=== PATIENT | male | born 1950 | race American Indian/Alaskan Native ===

== ENCOUNTER 2018-06-21 12:05 | Emergency (ER) | payer MEDICAID, OTHER ==
[2018-06-21 12:40] VITALS: BP 144/83
[2018-06-21] MEDS ORDERED: NORCO 5/325 PO ONE (13:42)
[2018-06-21] MEDS ORDERED: NORCO 5/325 ONE (13:45)
--- NOTE | 2018-06-21 14:51 | XRay Report ---
RIGHT ELBOW, 2 VIEWS History: Pain. Findings: 2 nonstandard images of the right elbow are presented. There is no obvious fracture or dislocation although the radial head is poorly imaged. Impression: Limited exam. No acute abnormality is identified. Consider repeat exam if needed.
--- NOTE | 2018-06-21 14:52 | XRay Report ---
RIGHT SHOULDER, 3 VIEWS: HISTORY: right shoulder pain. A comminuted fracture of the right humeral head/neck is identified. The scapula and clavicle are grossly intact. Large joint effusion is suspected at the right shoulder. The bony structures are demineralized. IMPRESSION: Comminuted fracture of the right humeral head.
--- NOTE | 2018-06-21 15:33 | Emergency Department Report ---
ED Upper Extremity Inj HPI - General Chief Complaint: Shoulder Injury Stated Complaint: RIGHT SHOULD INJURY Time Seen by Provider: 06/21/18 13:07 Source: patient Mode of arrival: Ambulatory Limitations: No Limitations - History of Present Illness Initial Comments: Patient presents to emergency department with the chief complaint of right arm pain that has been present since his fall on June 13. Patient states that he was given up to go to the bathroom when he fell onto his outstretched arm. Patient states he was seen at his physician's x-ray was done and he was not told of the results. The patient did receive a CD of the x-ray and was told to go to the emergency department. Patient denies him his head on the day following or loss of consciousness. Patient denies chest pain, shortness breath, headache. MD Complaint: Injury to:: right -: Sudden Other Extremity Injury: Arm: Right, Shoulder: Right Other Injuries: none Place: home Severity scale (0 -10): 4 Improves With: rest Worsens With: movement of extremity Context: fall Associated Symptoms: denies other symptoms - Related Data Previous Rx's Medication Instructions Recorded Last Taken Type HYDROcodone/APAP 5-325 [[place] 1 each PO Q6HR PRN #12 tablet 06/21/18 Unknown Rx 5/325] Allergies Allergy/AdvReac Type Severity Reaction Status Date / Time No Known Allergies Allergy Verified 06/21/18 12:40 ED Review of Systems ROS: Stated complaint: RIGHT SHOULD INJURY Other details as noted in HPI Comment: All other systems reviewed and negative Constitutional: denies: chills, fever Eyes: denies: eye pain, eye discharge, vision change ENT: denies: ear pain, throat pain Respiratory: denies: cough, shortness of breath, wheezing Cardiovascular: denies: chest pain, palpitations Endocrine: no symptoms reported Gastrointestinal: denies: abdominal pain, nausea, diarrhea Genitourinary: denies: urgency, dysuria Musculoskeletal: denies: back pain, joint swelling, arthralgia Skin: denies: rash, lesions Neurological: denies: headache, weakness, paresthesias Psychiatric: denies: anxiety, depression Hematological/Lymphatic: denies: easy bleeding, easy bruising ED Past Medical Hx - Past Medical History Previous Medical History?: Yes Hx Hypertension: Yes Hx CVA: Yes Hx Diabetes: Yes Additional medical history: high cholesterol - Surgical History Past Surgical History?: No - Social History Smoking Status: Current Every Day Smoker Substance Use Type: None - Medications Home Medications: Home Medications Medication Instructions Recorded Confirmed Last Taken Type HYDROcodone/APAP 5-325 [[place] 1 each PO Q6HR PRN #12 tablet 06/21/18 Unknown Rx 5/325] ED Physical Exam - General Limitations: No Limitations General appearance: alert, in no apparent distress - Head Head exam: Present: atraumatic, normocephalic - Eye Eye exam: Present: normal appearance - ENT ENT exam: Present: mucous membranes moist - Neck Neck exam: Present: normal inspection - Respiratory Respiratory exam: Present: normal lung sounds bilaterally. Absent: respiratory distress, wheezes, rales, rhonchi - Cardiovascular Cardiovascular Exam: Present: regular rate, normal rhythm. Absent: systolic murmur, diastolic murmur, rubs, gallop - GI/Abdominal GI/Abdominal exam: Present: soft, normal bowel sounds. Absent: distended, tenderness - Rectal Rectal exam: Present: deferred - Extremities Exam Extremities exam: Present: other (Gen. this a palpation of the proximal aspect of the humerus right side; the patient's right upper extremity is in a sling and has good sensation throughout all nerves innervating the arm and the patient has good cap refill) - Back Exam Back exam: Present: normal inspection - Neurological Exam Neurological exam: Present: alert, oriented X3 - Psychiatric Psychiatric exam: Present: normal affect, normal mood - Skin Skin exam: Present: warm, dry, intact, normal color. Absent: rash ED Course Vital Signs 06/21/18 06/21/18 06/21/18 12:35 13:14 14:33 Temperature 98 F Pulse Rate 99 H Respiratory 18 17 18 Rate Blood Pressure 144/83 O2 Sat by Pulse 96 Oximetry ED Medical Decision Making - Radiology Data Radiology results: report reviewed [facility] [address] [place] [address] XRay Report Signed Patient: MANSOOR FERRER JR MR#: [id number] : 1950 Acct:[id number] Age/Sex: 68 / M ADM Date: 06/21/18 Loc: ED Attending Dr: Ordering Physician: LUKE VALDERRAMA MD Date of Service: 06/21/18 Procedure(s): XR shoulder 2+V RT Accession Number(s): [id number] cc: LUKE VALDERRAMA MD Fluoro Time In Minutes: RIGHT SHOULDER, 3 VIEWS: HISTORY: right shoulder pain. A comminuted fracture of the right humeral head/neck is identified. The scapula and clavicle are grossly intact. Large joint effusion is suspected at the right shoulder. The bony structures are demineralized. IMPRESSION: Comminuted fracture of the right humeral head. Transcribed By: TTR Dictated By: ELBERT GARCIA JR, MD Electronically Authenticated By: ELBERT GARCIA JR, MD Signed Date/Time: 06/21/181448 DD/ 47 TD/TT: 06/21/181448 - Medical Decision Making I was able to open the patient's ED on our PACS system and at that time it was noticed that the patient had a hemorrhoid head fracture and there was concern for dislocation and thus is for was ordered X-ray was completed to evaluate for fracture dislocation Results discussed with patient Patient instructed to continue to wear his sling Critical care attestation.: If time is entered above; I have spent that time in minutes in the direct care of this critically ill patient, excluding procedure time. ED Disposition Clinical Impression: Humeral head fracture Disposition: - TO HOME OR SELFCARE Is pt being admited?: No Does the pt Need Aspirin: No Condition: Stable Instructions: Arm Fracture in Adults (ED) Additional Instructions: return if worse Prescriptions: HYDROcodone/APAP 5-325 [[place] 5/325] 1 each PO Q6HR PRN #12 tablet PRN Reason: Pain Referrals: PRIMARY MD MAKAYLA [Primary Care Provider] - 3-5 Days JACKLYN WARD MD [Staff Physician] - 3-5 Days Time of Disposition: 15:33
== END 2018-06-21 16:29 | disposition home or self-care (01) ==
LOC: ED 12:05
DX: S42.351A Displaced comminuted fracture of shaft of humerus, right arm, initial encounter for closed fracture (principal); I10 Essential (primary) hypertension; E11.9 Type 2 diabetes mellitus without complications; F17.200 Nicotine dependence, unspecified, uncomplicated; E78.00 Pure hypercholesterolemia, unspecified; Z86.73 Personal history of transient ischemic attack (TIA), and cerebral infarction without residual deficits; W19.XXXA Unspecified fall, initial encounter; Y93.89 Activity, other specified; Y92.002 Bathroom of unspecified non-institutional (private) residence as the place of occurrence of the external cause; Y99.8 Other external cause status

== ENCOUNTER 2018-09-01 21:35 | Emergency (ER) | payer MEDICAID, OTHER ==
--- NOTE | 2018-09-01 21:55 | Emergency Department Report ---
Chief Complaint: Dyspnea/Respdistress Stated Complaint: DIFFICULTY IN BREATHING Time Seen by Provider: 09/01/18 21:50 - HPI History of Present Illness: This is a 68 y.o. male that presents with SOB for a while that has progressed over the last week. PMH DM, CHF, and AR. - ROS Review of Systems: SOB - Exam Vital Signs: Vital Signs 09/01/18 21:50 Temperature 97.8 F Pulse Rate 101 H Respiratory 18 Rate Blood Pressure 142/88 [Left] O2 Sat by Pulse 99 Oximetry MSE screening note: Focused history and physical exam performed. Due to findings the following was ordered: Labs and CXR. ED Disposition for MSE Condition: Stable
[2018-09-01 22:17] LABS: Basophils % (Auto) 0.5 % (0.0-1.8); Eosinophils # (Auto) 0.1 K/mm3 (0.0-0.4); Eosinophils % (Auto) 1.1 % (0.0-4.3); Hematocrit 37.6 % (35.5-45.6); Hemoglobin 12.2 gm/dl (11.8-15.2); Lymphocytes % (Auto) 23.8 % (13.4-35.0); Mean Corpuscular HGB Conc 32 % (32-34); Mean Corpuscular Volume 87 fl (84-94); Monocytes # (Auto) 0.7 K/mm3 (0.0-0.8); Monocytes % (Auto) 7.8 % (0.0-7.3); Platelet Count 530 K/mm3 (140-440); Red Blood Count 4.34 M/mm3 (3.65-5.03); Red Cell Distribution Width 17.2 % (13.2-15.2)
[2018-09-01 22:31] LABS: Alanine Aminotransferase 25 units/L (7-56); Albumin 3.9 g/dL (3.9-5); BUN/Creatinine Ratio 19; Blood Urea Nitrogen 17 mg/dL (9-20); Calcium 9.2 mg/dL (8.4-10.2); Hemolysis Index 7
[2018-09-01] MEDS ORDERED: PROVENTIL IH ONE (22:53)
[2018-09-01] MEDS ORDERED: DECADRON IV ONE (22:53)
[2018-09-01] MEDS ORDERED: ATROVENT IH ONE (22:53)
--- NOTE | 2018-09-01 22:54 | Emergency Department Report ---
ED General Adult HPI - General Chief complaint: Dyspnea/Respdistress Stated complaint: DIFFICULTY IN BREATHING Time Seen by Provider: 09/01/18 21:50 Source: patient Mode of arrival: Ambulatory Limitations: No Limitations - History of Present Illness Initial comments: Patient is a 68-year-old male past medical history of this of heart failure and COPD who percents with shortness of breath it's been going on for 2 weeks and he's also been having a nonproductive cough. Patient denies having any chest pain but he states that his breathing is worse with exertion nothing makes it better. Patient had a [id number] history of smoking. Severity scale (0 -10): 0 - Related Data Home Medications Medication Instructions Recorded Confirmed Last Taken Aspirin [Aspir-Low] 81 mg PO QAM 09/01/18 09/01/18 Unknown ISOSORBIDE MONOnitrate [Imdur ER] 30 mg PO DAILY 09/01/18 09/01/18 Unknown Lisinopril [Zestril TAB] 10 mg PO QDAY 09/01/18 09/01/18 Unknown Metoprolol [Lopressor] 25 mg PO BID 09/01/18 09/01/18 Unknown metFORMIN [Glucophage] 500 mg PO BID 09/01/18 09/01/18 Unknown Previous Rx's Medication Instructions Recorded Last Taken Type HYDROcodone/APAP 5-325 [[place] 1 each PO Q6HR PRN #12 tablet 06/21/18 Unknown Rx 5/325] Furosemide [Lasix TAB] 40 mg PO BID #60 tablet 09/02/18 Unknown Rx Allergies Allergy/AdvReac Type Severity Reaction Status Date / Time No Known Allergies Allergy Verified 06/21/18 12:40 ED Review of Systems ROS: Stated complaint: DIFFICULTY IN BREATHING Other details as noted in HPI Constitutional: denies: chills, fever Eyes: denies: eye pain, eye discharge, vision change ENT: denies: ear pain, throat pain Respiratory: denies: cough, shortness of breath, wheezing Cardiovascular: denies: chest pain, palpitations Endocrine: no symptoms reported Gastrointestinal: denies: abdominal pain, nausea, diarrhea Genitourinary: denies: urgency, dysuria Musculoskeletal: denies: back pain, joint swelling, arthralgia Skin: denies: rash, lesions Neurological: denies: headache, weakness, paresthesias Psychiatric: denies: anxiety, depression Hematological/Lymphatic: denies: easy bleeding, easy bruising ED Past Medical Hx - Past Medical History Hx Hypertension: Yes Hx CVA: Yes Hx Congestive Heart Failure: Yes Hx Diabetes: Yes Additional medical history: high cholesterol - Social History Smoking Status: Former Smoker Substance Use Type: None - Medications Home Medications: Home Medications Medication Instructions Recorded Confirmed Last Taken Type HYDROcodone/APAP 5-325 [[place] 1 each PO Q6HR PRN #12 tablet 06/21/18 09/01/18 Unknown Rx 5/325] Aspirin [Aspir-Low] 81 mg PO QAM 09/01/18 09/01/18 Unknown History ISOSORBIDE MONOnitrate [Imdur ER] 30 mg PO DAILY 09/01/18 09/01/18 Unknown History Lisinopril [Zestril TAB] 10 mg PO QDAY 09/01/18 09/01/18 Unknown History Metoprolol [Lopressor] 25 mg PO BID 09/01/18 09/01/18 Unknown History metFORMIN [Glucophage] 500 mg PO BID 09/01/18 09/01/18 Unknown History Furosemide [Lasix TAB] 40 mg PO BID #60 tablet 09/02/18 Unknown Rx ED Physical Exam - General Limitations: No Limitations General appearance: alert, in no apparent distress - Head Head exam: Present: atraumatic, normocephalic - Eye Eye exam: Present: normal appearance - ENT ENT exam: Present: mucous membranes moist - Neck Neck exam: Present: normal inspection - Respiratory Respiratory exam: Present: normal lung sounds bilaterally. Absent: respiratory distress - Cardiovascular Cardiovascular Exam: Present: regular rate, normal rhythm. Absent: systolic murmur, diastolic murmur, rubs, gallop - GI/Abdominal GI/Abdominal exam: Present: soft, normal bowel sounds - Rectal Rectal exam: Present: deferred - Extremities Exam Extremities exam: Present: normal inspection - Back Exam Back exam: Present: normal inspection - Neurological Exam Neurological exam: Present: alert, oriented X3 - Psychiatric Psychiatric exam: Present: normal affect, normal mood - Skin Skin exam: Present: warm, dry, intact, normal color. Absent: rash ED Course Vital Signs 09/01/18 09/01/18 09/01/18 21:50 22:25 23:02 Temperature 97.8 F 97.8 F Pulse Rate 101 H 95 H Pulse Rate [ 85 Anterior Bilateral Throughout] Respiratory 18 22 Rate Respiratory 16 Rate [Anterior Bilateral Throughout] Blood Pressure Blood Pressure 142/88 130/97 [Left] O2 Sat by Pulse 99 93 Oximetry 09/02/18 09/02/18 09/02/18 00:00 00:02 01:31 Temperature Pulse Rate 99 H Pulse Rate [ 89 Anterior Bilateral Throughout] Respiratory 22 Rate Respiratory 16 Rate [Anterior Bilateral Throughout] Blood Pressure 132/84 Blood Pressure 136/85 [Left] O2 Sat by Pulse 100 95 Oximetry 09/02/18 09/02/18 02:00 03:00 Temperature Pulse Rate 102 H Pulse Rate [ Anterior Bilateral Throughout] Respiratory Rate Respiratory Rate [Anterior Bilateral Throughout] Blood Pressure 139/78 123/75 Blood Pressure [Left] O2 Sat by Pulse 98 97 Oximetry ED Medical Decision Making - Lab Data Result diagrams: 09/01/18 21:59 09/01/18 21:59 Lab Results 09/01/18 09/01/18 09/02/18 Range/Units 21:59 21:59 02:39 WBC 8.4 (4.5-11.0) K/mm3 RBC 4.34 (3.65-5.03) M/mm3 Hgb 12.2 (11.8-15.2) gm/dl Hct 37.6 (35.5-45.6) % MCV 87 (84-94) fl MCH 28 (28-32) pg MCHC 32 (32-34) % RDW 17.2 H (13.2-15.2) % Plt Count 530 H (140-440) K/mm3 Lymph % (Auto) 23.8 (13.4-35.0) % [place] % (Auto) 7.8 H (0.0-7.3) % Eos % (Auto) 1.1 (0.0-4.3) % Baso % (Auto) 0.5 (0.0-1.8) % Lymph # 2.0 (1.2-5.4) K/mm3 [place] # 0.7 (0.0-0.8) K/mm3 Eos # 0.1 (0.0-0.4) K/mm3 Baso # 0.0 (0.0-0.1) K/mm3 Seg Neutrophils % 66.8 (40.0-70.0) % Seg Neutrophils # 5.6 (1.8-7.7) K/mm3 Sodium 150 H (137-145) mmol/L Potassium 4.5 (3.6-5.0) mmol/L Chloride 106.5 (98-107) mmol/L Carbon Dioxide 28 (22-30) mmol/L Anion Gap 20 mmol/L BUN 17 (9-20) mg/dL Creatinine 0.9 (0.8-1.5) mg/dL Estimated GFR > 60 ml/min BUN/Creatinine Ratio 19 % Glucose 131 H (75-100) mg/dL POC Glucose (70-105) Calcium 9.2 (8.4-10.2) mg/dL Total Bilirubin 0.60 (0.1-1.2) mg/dL AST 30 (5-40) units/L ALT 25 (7-56) units/L Alkaline Phosphatase 88 (35-129) units/L Troponin T 0.014 (0.00-0.029) ng/mL Total Protein 6.6 (6.3-8.2) g/dL Albumin 3.9 (3.9-5) g/dL Albumin/Globulin Ratio 1.4 % 09/02/18 Range/Units 03:01 WBC (4.5-11.0) K/mm3 RBC (3.65-5.03) M/mm3 Hgb (11.8-15.2) gm/dl Hct (35.5-45.6) % MCV (84-94) fl MCH (28-32) pg MCHC (32-34) % RDW (13.2-15.2) % Plt Count (140-440) K/mm3 Lymph % (Auto) (13.4-35.0) % [place] % (Auto) (0.0-7.3) % Eos % (Auto) (0.0-4.3) % Baso % (Auto) (0.0-1.8) % Lymph # (1.2-5.4) K/mm3 [place] # (0.0-0.8) K/mm3 Eos # (0.0-0.4) K/mm3 Baso # (0.0-0.1) K/mm3 Seg Neutrophils % (40.0-70.0) % Seg Neutrophils # (1.8-7.7) K/mm3 Sodium (137-145) mmol/L Potassium (3.6-5.0) mmol/L Chloride (98-107) mmol/L Carbon Dioxide (22-30) mmol/L Anion Gap mmol/L BUN (9-20) mg/dL Creatinine (0.8-1.5) mg/dL Estimated GFR ml/min BUN/Creatinine Ratio % Glucose (75-100) mg/dL POC Glucose 111 H (70-105) Calcium (8.4-10.2) mg/dL Total Bilirubin (0.1-1.2) mg/dL AST (5-40) units/L ALT (7-56) units/L Alkaline Phosphatase (35-129) units/L Troponin T (0.00-0.029) ng/mL Total Protein (6.3-8.2) g/dL Albumin (3.9-5) g/dL Albumin/Globulin Ratio % - EKG Data -: EKG Interpreted by Ca - EKG Data 09/02/18 04:04 EKG shows sinus tachycardia at rate 100 left atrial March for a bundle-branch block and no ST segment elevation or T-wave inversion normal axis. - Radiology Data Radiology results: report reviewed, image reviewed Chest x-ray: Shows cardiomegaly - Medical Decision Making Chief medical diagnosis: Congestive heart failure Differential diagnosis: COPD exacerbation, electrolyte abnormality CBC BMP troponin chest x-ray IV Lasix, breathing treatment and steroids Workup is just remarkable for congestive heart failure patient has been diuresed and is feeling better I will send patient home. Critical care attestation.: If time is entered above; I have spent that time in minutes in the direct care of this critically ill patient, excluding procedure time. ED Disposition Clinical Impression: SOB (shortness of breath) CHF exacerbation Qualifiers: Heart failure type: unspecified Qualified Code(s): I50.9 - Heart failure, unspecified Disposition: DC-01 TO HOME OR SELFCARE Is pt being admited?: No Does the pt Need Aspirin: No Condition: Stable Instructions: Heart Failure (ED) Prescriptions: Furosemide [Lasix TAB] 40 mg PO BID #60 tablet Referrals: ROMEO INFANTE MD [Primary Care Provider] - 3-5 Days
--- NOTE | 2018-09-02 00:10 | XRay Report ---
PROCEDURE: XR CHEST ROUTINE 2V TECHNIQUE: PA and lateral chest radiographs were obtained. HISTORY: SOB COMPARISONS: None. FINDINGS: Heart: The heart size is slightly pronounced. Mediastinum/Vessels: Normal. Lungs/Pleural space: Mild vascular congestion with bilateral lower lung atelectasis with slight effu sions. Bony thorax: No acute osseous abnormality. IMPRESSION: CHF with mild bilateral lower lung atelectasis and slight effusions.. This document is electronically signed by Lizeth Multani DO., September 02 2018 12:08:31 AM ET
[2018-09-02] MEDS ORDERED: LASIX IV ONE (02:14)
[2018-09-02] MEDS ORDERED: THALITONE PO ONE (02:54)
[2018-09-02 04:17] VITALS: BP 124/79
== END 2018-09-02 05:02 | disposition home or self-care (01) ==
LOC: ED 21:35
DX: I50.9 Heart failure, unspecified (principal); I11.0 Hypertensive heart disease with heart failure; E11.9 Type 2 diabetes mellitus without complications; E78.00 Pure hypercholesterolemia, unspecified
CPT/HCPCS: 36415; 71046; 80053; 82962; 84484; 85025; 93005; 93010; 94640; 96374; 96375; 99284; J1100; J1940

== ENCOUNTER 2019-01-22 12:42 | Inpatient (IN) | payer OTHER ==
--- NOTE | 2019-01-22 12:52 | Emergency Department Report ---
Blank Doc - Documentation Documentation: This is a 68-year-old male that was sent by PCP for coffee ground emesis daily for 1 month and hypotension. This initial assessment/diagnostic orders/clinical plan/treatment(s) is/are subject to change based on patient's health status, clinical progression and re- assessment by fellow clinical providers in the ED. Further treatment and workup at subsequent clinical providers discretion. Patient/guardians urged not to elope from the ED as their condition may be serious if not clinically assessed and managed. Initial orders include: 1- Patient sent to MAIN ED for further evaluation and treatment 2- labs 3- UA
[2019-01-22 13:24] LABS: Basophils # (Auto) 0.1 K/mm3 (0.0-0.1); Basophils % (Auto) 1.4 % (0.0-1.8); Eosinophils # (Auto) 0.1 K/mm3 (0.0-0.4); Eosinophils % (Auto) 0.7 % (0.0-4.3); Hematocrit 25.5 % (35.5-45.6); Hemoglobin 8.9 gm/dl (11.8-15.2); Lymphocytes # (Auto) 2.7 K/mm3 (1.2-5.4); Lymphocytes % (Auto) 30.5 % (13.4-35.0); Mean Corpuscular HGB Conc 35 % (32-34); Mean Corpuscular Volume 87 fl (84-94); Monocytes # (Auto) 0.8 K/mm3 (0.0-0.8); Monocytes % (Auto) 9.3 % (0.0-7.3); Platelet Count 400 K/mm3 (140-440); Red Blood Count 2.91 M/mm3 (3.65-5.03); Red Cell Distribution Width 15.9 % (13.2-15.2)
[2019-01-22 13:35] LABS: INR 1.08 (0.87-1.13)
[2019-01-22 13:36] LABS: Partial Thromboplastin Time 28.9 Sec. (24.2-36.6)
[2019-01-22 13:48] LABS: Alanine Aminotransferase 15 units/L (7-56); Albumin 4.3 g/dL (3.9-5); BUN/Creatinine Ratio 16; Blood Urea Nitrogen 22 mg/dL (9-20); Calcium 9.4 mg/dL (8.4-10.2); Hemolysis Index 0
[2019-01-22] MEDS ORDERED: PROTONIX IV ONE (13:57)
[2019-01-22] MEDS ORDERED: PEPCID IV ONE (13:57)
[2019-01-22] MEDS ORDERED: NACL 0.9% 500 ML 500 ML IV ONE (13:57)
[2019-01-22] MEDS ORDERED: ZOFRAN IV ONE (13:57)
--- NOTE | 2019-01-22 13:58 | Emergency Department Report ---
ED GI Bleed HPI - General Chief complaint: GI Bleed Stated complaint: GI Time Seen by Provider: 01/22/19 12:51 Source: patient, RN notes reviewed, old records reviewed Mode of arrival: Ambulatory Limitations: Physical Limitation - History of Present Illness Initial comments: This is a 68-year-old gentleman. The patient is not known to this provider pre viously. His past medical history includes hypertension, diabetes, possible congestive heart failure, and he takes aspirin. He is sent to the ER by his primary care provider, Ms. Alexx Lea, nurse pra ctitioner, for presumed hematemesis and upper GI bleed. Patient presents to the ER today with a complaint of nausea, vomiting, coffee-ground emesis, black tarry stools, hypotension, shortness of breath, weakness. Symptoms have been going on for reportedly 12 days. He also has epigastric and right upper quadrant pain. The pain does not move anywhere. He indicates that the pain does not have ex acerbating or relieving factors. He indicates he does not take blood thinning medications. He indicates he does not have a private organisational psychologist. As per review of clinic documentation, patient was hypotensive with a blood pressure of 79/53, and found to be tachycardic. He was sent to the ER for further evaluation. MD complaint: coffee ground emesis, gross hematemesis, melena, blood streaked stool -: Gradual, days(s) Radiation: RUQ, epigastric Quality: other (aching) Consistency: intermittent Improves with: none Worsens with: none Associated Symptoms: abdominal pain, nausea, vomiting, shortness of breath, weakness - Related Data Home Medications Medication Instructions Recorded Confirmed Last Taken Aspirin [Aspir-Low] 81 mg PO QAM 09/01/18 01/22/19 Unknown ISOSORBIDE MONOnitrate [Imdur ER] 30 mg PO DAILY 09/01/18 01/22/19 Unknown Lisinopril [Zestril TAB] 10 mg PO QDAY 09/01/18 01/22/19 Unknown Metoprolol [Lopressor] 25 mg PO BID 09/01/18 01/22/19 Unknown metFORMIN [Glucophage] 500 mg PO BID 09/01/18 01/22/19 Unknown Cholecalciferol Vit D3 [Vitamin D3 2,000 unit PO BID 01/22/19 01/22/19 Unknown 1,000 UNIT TAB] Previous Rx's Medication Instructions Recorded Last Taken Type HYDROcodone/APAP 5-325 [[place] 1 each PO Q6HR PRN #12 tablet 06/21/18 Unknown Rx 5/325] Furosemide [Lasix TAB] 40 mg PO BID #60 tablet 09/02/18 Unknown Rx Allergies Allergy/AdvReac Type Severity Reaction Status Date / Time No Known Allergies Allergy Verified 06/21/18 12:40 ED Review of Systems ROS: Stated complaint: GI Other details as noted in HPI Constitutional: malaise. denies: fever Eyes: denies: eye discharge ENT: denies: epistaxis Respiratory: shortness of breath Cardiovascular: denies: chest pain Gastrointestinal: abdominal pain, nausea, vomiting, hematemesis, melena Genitourinary: denies: dysuria Musculoskeletal: myalgia Skin: denies: lesions Neurological: weakness Psychiatric: anxiety Hematological/Lymphatic: easy bleeding ED Past Medical Hx - Past Medical History Previous Medical History?: Yes Hx Hypertension: Yes Hx CVA: Yes Hx Congestive Heart Failure: Yes Hx Diabetes: Yes Additional medical history: high cholesterol - Surgical History Past Surgical History?: No - Social History Smoking Status: Never Smoker Substance Use Type: None - Medications Home Medications: Home Medications Medication Instructions Recorded Confirmed Last Taken Type HYDROcodone/APAP 5-325 [[place] 1 each PO Q6HR PRN #12 tablet 06/21/18 01/22/19 Unknown Rx 5/325] Aspirin [Aspir-Low] 81 mg PO QAM 09/01/18 01/22/19 Unknown History ISOSORBIDE MONOnitrate [Imdur ER] 30 mg PO DAILY 09/01/18 01/22/19 Unknown History Lisinopril [Zestril TAB] 10 mg PO QDAY 09/01/18 01/22/19 Unknown History Metoprolol [Lopressor] 25 mg PO BID 09/01/18 01/22/19 Unknown History metFORMIN [Glucophage] 500 mg PO BID 09/01/18 01/22/19 Unknown History Furosemide [Lasix TAB] 40 mg PO BID #60 tablet 09/02/18 01/22/19 Unknown Rx Cholecalciferol Vit D3 [Vitamin D3 2,000 unit PO BID 01/22/19 01/22/19 Unknown History 1,000 UNIT TAB] ED Physical Exam - General Limitations: No Limitations General appearance: alert, anxious - Head Head exam: Present: atraumatic, normocephalic - Eye Eye exam: Present: normal appearance, EOMI. Absent: nystagmus - ENT ENT exam: Present: normal orophraynx, mucous membranes dry, normal external ear exam - Neck Neck exam: Present: normal inspection, full ROM. Absent: tenderness, meningismus - Respiratory Respiratory exam: Present: normal lung sounds bilaterally. Absent: respiratory distress - Cardiovascular Cardiovascular Exam: Present: normal rhythm, tachycardia, normal heart sounds. Absent: systolic murmur, diastolic murmur, rubs, gallop - GI/Abdominal GI/Abdominal exam: Present: soft. Absent: distended, tenderness, guarding, rebound, rigid, pulsatile mass - Rectal Rectal exam: Present: normal inspection, normal rectal tone, heme (+) stool, black stool, other (chaperoned by nurse Zeeshan Richter). Absent: hemorrhoids, mass, tenderness, normal prostate, prostate tenderness, prostate enlargement - Extremities Exam Extremities exam: Present: normal inspection, full ROM, other (2+ pulses noted in the bilateral upper, lower extremities. Compartments soft. No long bony tenderness. The pelvis is stable.). Absent: pedal edema, joint swelling, calf tenderness - Back Exam Back exam: Present: normal inspection, full ROM. Absent: tenderness, CVA tende rness (R), CVA tenderness (L), paraspinal tenderness, vertebral tenderness - Neurological Exam Neurological exam: Present: alert, other (Extraocular movements intact. Tongue midline. No facial droop. Facial sensation intact to light touch in the V1, V2, V3 distribution bilaterally. 5 and 5 strength in 4 extremities.. Sensation is intact to light touch in 4 extremities.). Absent: motor sensory deficit - Psychiatric Psychiatric exam: Present: anxious - Skin Skin exam: Present: warm, dry, intact, normal color. Absent: rash ED Course Vital Signs 01/22/19 01/22/19 01/22/19 12:51 12:58 13:00 Temperature 98.6 F Pulse Rate 54 L 103 H 88 Respiratory 16 17 Rate Blood Pressure 85/59 Blood Pressure 67/47 [Left] O2 Sat by Pulse 100 100 Oximetry 01/22/19 01/22/19 01/22/19 13:30 14:30 15:00 Temperature Pulse Rate 62 88 78 Respiratory 18 17 17 Rate Blood Pressure Blood Pressure 105/59 115/52 115/63 [Left] O2 Sat by Pulse 98 97 97 Oximetry 01/22/19 01/22/19 01/22/19 15:30 16:00 16:30 Temperature Pulse Rate 88 82 88 Respiratory 17 17 Rate Blood Pressure Blood Pressure 111/63 110/52 109/58 [Left] O2 Sat by Pulse 94 100 Oximetry 01/22/19 01/22/19 17:00 17:34 Temperature Pulse Rate 83 88 Respiratory 17 18 Rate Blood Pressure Blood Pressure 106/58 105/61 [Left] O2 Sat by Pulse 100 99 Oximetry - Reevaluation(s) Reevaluation #1: 01/22/19 14:22 Differential diagnosis, including but not limited to: Upper GI bleed, dehydration, orthostasis Assessment and plan: 68-year-old gentleman, improving hypotension, and to have black stool, guaiac positive, decreased hemoglobin and hematocrit when compared to prior, all concerning an suggestive for upper GI bleed. 2 IVs have been ordered. Nothing by mouth has been ordered, IV fluids ordered, Protonix ordered, Zofran ordered, CT scan abdomen pelvis ordered, and gastroenterology consult is ordered. We will admit to the medical service once initial data points have resulted. Reevaluation #2: 01/22/19 14:29 Discussed with gastroenterology, Dr. Silva, who agrees with the plan, and will follow the patient in consultation. Chart given to Hospital physician, Dr. Guthrie, to arrange for admission to the medical service for presumed upper GI bleed. Reevaluation #3: 01/22/19 17:42 CT scan of the abdomen and pelvis negative for pathology. CT scan of the abdomen and pelvis is negative for acute pathology. Nonemergent incidental find ings are noted. We will defer to inpatient team to further evaluate this, they can be followed up routinely as an outpatient, and does not require emergent workup or evaluation at this point in time. ED Medical Decision Making - Lab Data Result diagrams: 01/22/19 13:11 01/22/19 13:11 Vital Signs 01/22/19 01/22/19 12:51 12:58 Temperature 98.6 F Pulse Rate 54 L 103 H Respiratory 16 Rate Blood Pressure 85/59 Blood Pressure 67/47 [Left] O2 Sat by Pulse 100 Oximetry Labs 01/22/19 01/22/19 01/22/19 13:11 13:11 13:11 WBC 8.9 RBC 2.91 L Hgb 8.9 L Hct 25.5 L MCV 87 MCH 31 MCHC 35 H RDW 15.9 H Plt Count 400 Lymph % (Auto) 30.5 [place] % (Auto) 9.3 H Eos % (Auto) 0.7 Baso % (Auto) 1.4 Lymph # 2.7 [place] # 0.8 Eos # 0.1 Baso # 0.1 Seg Neutrophils % 58.1 Seg Neutrophils # 5.1 PT 13.7 INR 1.08 APTT 28.9 Sodium 137 Potassium 4.8 Chloride 97.9 L Carbon Dioxide 25 Anion Gap 19 BUN 22 H Creatinine 1.4 Estimated GFR > 60 BUN/Creatinine Ratio 16 Glucose 97 Calcium 9.4 Total Bilirubin 0.80 AST 12 ALT 15 Alkaline Phosphatase 80 Total Protein 7.0 Albumin 4.3 Albumin/Globulin Ratio 1.6 Lipase 21 Blood Type 01/22/19 13:20 WBC RBC Hgb Hct MCV MCH MCHC RDW Plt Count Lymph % (Auto) [place] % (Auto) Eos % (Auto) Baso % (Auto) Lymph # [place] # Eos # Baso # Seg Neutrophils % Seg Neutrophils # PT INR APTT Sodium Potassium Chloride Carbon Dioxide Anion Gap BUN Creatinine Estimated GFR BUN/Creatinine Ratio Glucose Calcium Total Bilirubin AST ALT Alkaline Phosphatase Total Protein Albumin Albumin/Globulin Ratio Lipase Blood Type O POSITIVE - EKG Data -: EKG Interpreted by Nh - EKG Data 01/22/19 14:44 This is a normal sinus rhythm, left axis, left axis deviation, rate 83 bpm, borderline left anterior fascicular block, left ventricular hypertrophy, T-wave inversion/abnormalities lateral leads, there is a left bundle-branch block, the EKG is abnormal, the EKG is unchanged from prior from August 2018, the EKG is not consistent with ST elevation myocardial infarction. - Radiology Data Radiology results: pending, report reviewed, image reviewed X-ray of the chest is negative for acute disease. Referring Physician: DELPHINE FAUST Patient Name: MANSOOR FERRER Date of : 1950 Sex: Male Report Date: 2019-01-22 Report Status: [place] [address] Cat Scan Report Signed Patient: MANSOOR FERRER JR MR#: [id number] : 1950 Acct:[id number] Age/Sex: 68 / M ADM Date: 01/22/19 Loc: ED Attending Dr: Ordering Physician: DELPHINE FAUST MD Date of Service: 01/22/19 Procedure(s): CT abdomen pelvis wo con Accession Number(s): [id number] cc: DELPHINE FAUST MD CT abdomen pelvis wo con INDICATION: Upper GI bleed, nausea, vomiting, weakness. TECHNIQUE: All CT scans at this location are performed using the following dose modulation technique: Automated exposure control. Helical slices were obtained through the abdomen and pelvis. No contrast is administered. COMPARISON: None available. FINDINGS: ABDOMEN: The heart is enlarged. There is a very small pericardial effusion. 1 cm calcified structure in the lateral segment of the left lobe of the liver. There is a small calcified granuloma in the medial segment of the left lobe the liver. Spleen, pancreas, adrenal glands, and small bowel are unremarkable. There is no obstruction, inflammation, or free air. There is a cyst in the upper pole the right kidney. There is a small calyceal stone in the lower pole the right kidney. There is scarring noted in both k idneys. Atherosclerotic calcifications are noted in the aorta and iliac arteries. PELVIS: The prostate gland is enlarged. There is no adenopathy. There are no abnormal fluid collections. There is no inflammatory change. On review of bone windows, no acute osseous abnormalities are seen. IMPRESSION: 1. There is no obstruction, inflammation, or free air. There is a nonobstructing calyceal stone in the right kidney. There are cysts in the right kidney. There is a 1 cm partially calcified nodule in the lateral segment of the left lobe of the liver this could be the sequela of inflammation or trauma. Metastatic lesion from a mucinous producing tumor is included in the differential diagnosis There is enlargement of the heart. Signer Name: Renaldo Nunez MD Signed: 01/22/2019 4:45 PM Workstation Name: [id number] Transcribed By: Dictated By: Renaldo Nunez MD Electronically Authenticated By: Renaldo Nunez MD Signed Date/Time: 01/22/19 1645 DD/ [id number] Critical care attestation.: If time is entered above; I have spent that time in minutes in the direct care of this critically ill patient, excluding procedure time. ED Disposition Clinical Impression: UGIB (upper gastrointestinal bleed) Disposition: OP ADMIT IP TO THIS HOSP Is pt being admited?: Yes Condition: Serious
--- NOTE | 2019-01-22 14:27 | XRay Report ---
CHEST 1 VIEW INDICATION: Shortness of breath. COMPARISON: 09/01/2018 FINDINGS: Support devices: None. Heart: Mild cardiomegaly. The mediastinal contour is within normal limits otherwise. Lungs/Pleura: No acute air space or interstitial disease. Additional findings: None. IMPRESSION: Mild cardiomegaly. Lungs clear. Signer Name: Heladio Crawford Jr, MD Signed: 01/22/2019 2:22 PM Workstation Name: [id number]
--- NOTE | 2019-01-22 15:24 | History and Physical Report ---
History of Present Illness Chief complaint: I was coughing up blood, and my nurse told me to come in History of present illness: 68 YO Male with HTN, CVA, CHF, HLD, DM, PUD presents to ED for evaluation. Pt states that he has experienced multiple episodes of nausea, vomiting, coffee- ground emesis, and black tarry stools over the past 2 weeks, with recurrent symptoms over the past 2 days. Pt was seen in his PCP office today and was instructed to seem further care at [facility]. Pt transported to [facility] via private vehicle. Pt seen and evaluated in ED and found to have heme positive stool, as well as symptoms consistent with GI Bleeding as well as hypotension with SBP in the 70's. Pt treated with IVF resuscitation therapy with resolution of hypotension. Pt also reports epigastric discomfort which is relieved with meals. Pt denies fever, chills, CP, Palpitations, NVD, Trauma, BRBPR, skin rash, productive cough, or recent ill contacts. Pt admitted to [facility] and placed on remote telemetry. NO prior admission for review. All listed medication reconciled at time of admission. Past History Past Medical History: heart failure, hypertension, hyperlipidemia, stroke, other (PUD) Past Surgical History: No surgical history, Other (reviewed) Social history: single Family history: hypertension Medications and Allergies Allergies Allergy/AdvReac Type Severity Reaction Status Date / Time No Known Allergies Allergy Verified 06/21/18 12:40 Home Medications Medication Instructions Recorded Confirmed Last Taken Type HYDROcodone/APAP 5-325 [[place] 1 each PO Q6HR PRN #12 tablet 06/21/18 09/01/18 Unknown Rx 5/325] Aspirin [Aspir-Low] 81 mg PO QAM 09/01/18 09/01/18 Unknown History ISOSORBIDE MONOnitrate [Imdur ER] 30 mg PO DAILY 09/01/18 09/01/18 Unknown History Lisinopril [Zestril TAB] 10 mg PO QDAY 09/01/18 09/01/18 Unknown History Metoprolol [Lopressor] 25 mg PO BID 09/01/18 09/01/18 Unknown History metFORMIN [Glucophage] 500 mg PO BID 09/01/18 09/01/18 Unknown History Furosemide [Lasix TAB] 40 mg PO BID #60 tablet 09/02/18 Unknown Rx Review of Systems Constitutional: no weight loss, no weight gain, no fever, no chills Ears, nose, mouth and throat: no ear pain, no ear discharge, no tinnitis, no decreased hearing, no nose pain, no nasal congestion Cardiovascular: no chest pain, no orthopnea, no palpitations, no rapid/irregular heart beat, no edema Respiratory: no cough, no cough with sputum, no excessive sputum, no hemoptysis, no shortness of breath Gastrointestinal: hematemesis, coffee ground emesis, BRBPR, melena, no abdominal pain, no nausea, no vomiting, no diarrhea, no constipation Genitourinary Male: no dysuria, no hematuria, no flank pain, no discharge, no urinary frequency, no nocturia, no incontinence Rectal: no pain, no incontinence, no bleeding Musculoskeletal: no neck stiffness, no neck pain, no shooting arm pain, no arm numbness/tingling, no shooting leg pain, no leg numbness/tingling Integumentary: no rash, no pruritis, no jaundice Neurological: no head injury, no transient paralysis, no weakness, no parathesias, no tingling, no syncope, no tremors Psychiatric: no anxiety, no memory loss, no change in sleep habits, no insomnia, no hypersomnia, no suicidal ideation, no disorientation Endocrine: no cold intolerance, no heat intolerance, no polyphagia, no excessive thirst, no polydipsia Hematologic/Lymphatic: no easy bruising, no easy bleeding, no lymphadenopathy, no lymphedema Allergic/Immunologic: no urticaria, no allergic rhinitis, no wheezing, no persistent infections, no anaphylaxis, no angioedema Exam - Constitutional Vitals: Temp Pulse Resp BP Pulse Ox 98.6 F 103 H 16 67/47 100 01/22/19 12:51 01/22/19 12:58 01/22/19 12:51 01/22/19 12:58 01/22/19 12:51 General appearance: Present: mild distress, well-nourished - EENT Eyes: Present: PERRL ENT: hearing intact, clear oral mucosa - Neck Neck: Present: supple, normal ROM - Respiratory Respiratory effort: normal Respiratory: bilateral: CTA - Cardiovascular Heart Sounds: Present: S1 & S2. Absent: rub, click - Extremities Extremities: pulses symmetrical, No edema Peripheral Pulses: within normal limits - Abdominal General gastrointestinal: Present: soft, non-tender, non-distended, normal bowel sounds Male genitourinary: Present: normal - Integumentary Integumentary: Present: clear, warm, dry - Musculoskeletal Musculoskeletal: gait normal, strength equal bilaterally - Psychiatric Psychiatric: appropriate mood/affect, intact judgment & insight - Neurologic Neurologic: CNII-XII intact, moves all extremities Results - Labs CBC & Chem 7: 01/22/19 13:11 01/22/19 13:11 Labs: Abnormal lab results 01/22/19 01/22/19 Range/Units 13:11 13:11 RBC 2.91 L (3.65-5.03) M/mm3 Hgb 8.9 L (11.8-15.2) gm/dl Hct 25.5 L (35.5-45.6) % MCHC 35 H (32-34) % RDW 15.9 H (13.2-15.2) % [place] % (Auto) 9.3 H (0.0-7.3) % Chloride 97.9 L (98-107) mmol/L BUN 22 H (9-20) mg/dL Assessment and Plan - Patient Problems (1) UGIB (upper gastrointestinal bleed) Current Visit: Yes Status: Acute Plan to address problem: GI consulted in ED, PPI therapy, CBC,CMP, repeat CBC after PRBC transfusion. (2) CHF (congestive heart failure) Current Visit: Yes Status: Chronic Plan to address problem: Strict I/O, daily weight, monitor uop q shift, monitor fluid balance, afterload reduction, supplemental oxygen, pulse oximetry (3) Anemia Current Visit: Yes Status: Acute Plan to address problem: PRBC Transfusion, repeat CBC (4) HTN (hypertension) Current Visit: Yes Status: Acute Qualifiers: Hypertension type: essential hypertension Qualified Code(s): I10 - Essential (primary) hypertension Plan to address problem: Monitor BP q shift, supportive care. (5) HLD (hyperlipidemia) Current Visit: Yes Status: Acute Qualifiers: Hyperlipidemia type: mixed hyperlipidemia Qualified Code(s): E78.2 - Mixed hyperlipidemia Plan to address problem: low cholesterol diet, statin therapy as indicated. (6) PUD (peptic ulcer disease) Current Visit: Yes Status: Acute Plan to address problem: PPI therapy, supportive care. (7) DVT prophylaxis Current Visit: Yes Status: Acute Plan to address problem: SCD to BLE while in bed, supportive care.
[2019-01-22] MEDS ORDERED: NORCO 5/325 PO PRN (15:25)
[2019-01-22] MEDS ORDERED: TYLENOL PO PRN (15:50)
[2019-01-22] MEDS ORDERED: ZOFRAN IV PRN (15:50)
[2019-01-22] MEDS ORDERED: SODIUM CHLORIDE FLUSH SYRINGE 10 ML IV PRN (15:50)
[2019-01-22] MEDS ORDERED: NACL 0.9% 500 ML 500 ML IV NR (15:51)
--- NOTE | 2019-01-22 16:50 | Cat Scan Report ---
CT abdomen pelvis wo con INDICATION: Upper GI bleed, nausea, vomiting, weakness. TECHNIQUE: All CT scans at this location are performed using the following dose modulation technique: Automated exposure control. Helical slices were obtained through the abdomen and pelvis. No contrast is adminis tered. COMPARISON: None available. FINDINGS: ABDOMEN: The heart is enlarged. There is a very small pericardial effusion. 1 cm calcified structure in the lateral segment of the left lobe of the liver. There is a small calci fied granuloma in the medial segment of the left lobe the liver. Spleen, pancreas, adrenal glands, and small bowel are unremarkable. There is no obstruction, inflamma tion, or free air. There is a cyst in the upper pole the right kidney. There is a small calyceal stone in the lower pole the right kidney. There is scarring noted in both kidneys. Atherosclerotic calcifications are noted in the aorta and iliac arteries. PELVIS: The prostate gland is enlarged. There is no adenopathy. There are no abnormal fluid collectio ns. There is no inflammatory change. On review of bone windows, no acute osseous abnormalities are seen. IMPRESSION: 1. There is no obstruction, inflammation, or free air. There is a nonobstructing calyceal stone in the right kidney. There are cysts in the right kidney. There is a 1 cm partially calcified nodule in the lateral segment of the left lobe of the liver this could be the sequela of inflammation or trauma. Metastatic lesion from a mucinous producing tumor is included in the differential diagnosis There is enlargement of the heart. Signer Name: Renaldo Nunez MD Signed: 01/22/2019 4:45 PM Workstation Name: [id number]
--- NOTE | 2019-01-22 18:09 | Gastroenterology Consultation ---
History of Present Illness - Reason for Consult Consult date: 01/22/19 gi bleed Requesting physician: DELPHINE FAUST - History of Present Illness This is a 68 yo male with pmh of HTN, CVA, CHF, DM, and HLD presenting to the Ed for multiple episodes of black tarry stools over the past 1-2 weeks and vomiting coffee ground emesis. GI consulted for GI bleed evaluation. Patient reports taking ASA 81 mg daily but no NSAIDs or blood thinners. No prior h/o GI bleed. He denies any abdominal pain or fever/chills. In the ED, he had heme positive melena stool on rectal exam. Noted to be hypotensive with SBP in 70s initially but improved with IVF. No prior EGD or colonoscopy. Medication list updated and reviewed. Past History Past Medical History: heart failure, hypertension, hyperlipidemia, stroke, other (PUD) Past Surgical History: No surgical history, Other (reviewed) Social history: single Family history: hypertension Medications and Allergies Allergies Allergy/AdvReac Type Severity Reaction Status Date / Time No Known Allergies Allergy Verified 06/21/18 12:40 Home Medications Medication Instructions Recorded Confirmed Last Taken Type HYDROcodone/APAP 5-325 [[place] 1 each PO Q6HR PRN #12 tablet 06/21/18 01/22/19 Unknown Rx 5/325] Aspirin [Aspir-Low] 81 mg PO QAM 09/01/18 01/22/19 Unknown History ISOSORBIDE MONOnitrate [Imdur ER] 30 mg PO DAILY 09/01/18 01/22/19 Unknown History Lisinopril [Zestril TAB] 10 mg PO QDAY 09/01/18 01/22/19 Unknown History Metoprolol [Lopressor] 25 mg PO BID 09/01/18 01/22/19 Unknown History metFORMIN [Glucophage] 500 mg PO BID 09/01/18 01/22/19 Unknown History Furosemide [Lasix TAB] 40 mg PO BID #60 tablet 09/02/18 01/22/19 Unknown Rx Cholecalciferol Vit D3 [Vitamin D3 2,000 unit PO BID 01/22/19 01/22/19 Unknown History 1,000 UNIT TAB] Active Meds: Active Medications Acetaminophen (Tylenol) 650 mg PO Q4H PRN PRN Reason: Pain MILD(1-3)/Fever >100.5/DICK Acetaminophen/Hydrocodone Bitart ([place] 5/325) 1 each PO Q6HR PRN PRN Reason: Pain Aspirin (Halfprin Ec) 81 mg PO QAM ANGELA Furosemide (Lasix) 40 mg PO BID ANGELA Sodium Chloride (Nacl 0.9% 500 Ml) 500 mls @ 0 mls/hr IV ONCE NR Stop: 01/22/19 23:59 Isosorbide Mononitrate (Imdur) 30 mg PO DAILY ANGELA Lisinopril (Zestril) 10 mg PO QDAY ANGELA Metoprolol Tartrate (Lopressor) 25 mg PO BID ANGELA Ondansetron HCl (Zofran) 4 mg IV Q8H PRN PRN Reason: Nausea And Vomiting Pantoprazole Sodium (Protonix) 40 mg IV BID ANGELA Sodium Chloride (Sodium Chloride Flush Syringe 10 Ml) 10 ml IV BID ANGELA Sodium Chloride (Sodium Chloride Flush Syringe 10 Ml) 10 ml IV PRN PRN PRN Reason: LINE FLUSH Review of Systems - Review of Systems All systems: negative Constitutional: no weight loss, no weight gain Cardiovascular: no chest pain, no edema Gastrointestinal: nausea, vomiting, melena, no abdominal pain, no BRBPR Neurological: weakness Exam - Constitutional Vital Signs: Temp Pulse Resp BP Pulse Ox 98.6 F 88 18 105/61 99 01/22/19 12:51 01/22/19 17:34 01/22/19 17:34 01/22/19 17:34 01/22/19 17:34 General appearance: no acute distress - EENT Eyes: EOM intact ENT: hearing intact - Neck Neck: supple - Respiratory Respiratory: bilateral: CTA - Cardiovascular Rhythm: regular Heart Sounds: Present: S1 & S2 - Gastrointestinal General gastrointestinal: Present: soft, non-tender, non-distended - Integumentary Integumentary: Present: clear, warm - Neurologic Neurological: alert and oriented x3 - Labs CBC & Chem 7: 01/22/19 13:11 01/22/19 13:11 Lab Results: Laboratory Results - last 24 hr 01/22/19 01/22/19 01/22/19 13:11 13:11 13:11 WBC 8.9 RBC 2.91 L Hgb 8.9 L Hct 25.5 L MCV 87 MCH 31 MCHC 35 H RDW 15.9 H Plt Count 400 Lymph % (Auto) 30.5 [place] % (Auto) 9.3 H Eos % (Auto) 0.7 Baso % (Auto) 1.4 Lymph # 2.7 [place] # 0.8 Eos # 0.1 Baso # 0.1 Seg Neutrophils % 58.1 Seg Neutrophils # 5.1 PT 13.7 INR 1.08 APTT 28.9 Sodium 137 Potassium 4.8 Chloride 97.9 L Carbon Dioxide 25 Anion Gap 19 BUN 22 H Creatinine 1.4 Estimated GFR > 60 BUN/Creatinine Ratio 16 Glucose 97 Calcium 9.4 Total Bilirubin 0.80 AST 12 ALT 15 Alkaline Phosphatase 80 Total Protein 7.0 Albumin 4.3 Albumin/Globulin Ratio 1.6 Lipase 21 Blood Type Antibody Screen Crossmatch 01/22/19 13:20 WBC RBC Hgb Hct MCV MCH MCHC RDW Plt Count Lymph % (Auto) [place] % (Auto) Eos % (Auto) Baso % (Auto) Lymph # [place] # Eos # Baso # Seg Neutrophils % Seg Neutrophils # PT INR APTT Sodium Potassium Chloride Carbon Dioxide Anion Gap BUN Creatinine Estimated GFR BUN/Creatinine Ratio Glucose Calcium Total Bilirubin AST ALT Alkaline Phosphatase Total Protein Albumin Albumin/Globulin Ratio Lipase Blood Type O POSITIVE Antibody Screen Negative Crossmatch See Detail Assessment and Plan # H/o CHF # Melena # Coffee ground emesis # Upper GI bleed - initially hypotensive but responded to IVF. - Hgb down to 8 from prior Hgb at 12 in 08/2018. - may be due to PUD, esophagitis, gastritis, AVMs. Rec - continue with PPI IV bid - monitor H/H serially. - will plan for EGD tomorrow. - NPO MN. - recommend cardiology consult for risk stratification. H/o CHF and per patient, he failed stress test last year. enlarged heart seen on CT. - Patient Problems (1) UGIB (upper gastrointestinal bleed) Current Visit: Yes Status: Acute
[2019-01-22] MEDS: LOPRESSOR PO SCH (22:24)
[2019-01-22] MEDS: PROTONIX IV SCH (22:24)
[2019-01-22] MEDS: LASIX PO SCH (22:24)
[2019-01-22] MEDS: SODIUM CHLORIDE FLUSH SYRINGE 10 ML IV SCH (22:25)
[2019-01-23 06:23] LABS: Basophils % (Auto) 0.2 % (0.0-1.8); Eosinophils # (Auto) 0.1 K/mm3 (0.0-0.4); Eosinophils % (Auto) 1.9 % (0.0-4.3); Hematocrit 25.4 % (35.5-45.6); Hemoglobin 8.7 gm/dl (11.8-15.2); Lymphocytes # (Auto) 2.3 K/mm3 (1.2-5.4); Lymphocytes % (Auto) 35.6 % (13.4-35.0); Mean Corpuscular HGB Conc 34 % (32-34); Mean Corpuscular Volume 87 fl (84-94); Monocytes # (Auto) 0.6 K/mm3 (0.0-0.8); Monocytes % (Auto) 8.9 % (0.0-7.3); Platelet Count 351 K/mm3 (140-440); Red Blood Count 2.93 M/mm3 (3.65-5.03); Red Cell Distribution Width 16.1 % (13.2-15.2)
[2019-01-23 06:39] LABS: BUN/Creatinine Ratio 14; Blood Urea Nitrogen 18 mg/dL (9-20); Calcium 8.8 mg/dL (8.4-10.2); Hemolysis Index 3
--- NOTE | 2019-01-23 06:53 | Event Note ---
Date: 01/23/19 Na this am 161 (trending up from 137 yesterday) pt received NS 500cc Bolus x2. Will ordered stat repeat Na to confirm lab values
[2019-01-23] MEDS ORDERED: NACL 0.9% 1000 ML 1,000 ML IV SCH ×2 (09:00→13:00)
[2019-01-23] MEDS: PROTONIX IV SCH ×2 (09:26→21:37)
[2019-01-23] MEDS: IMDUR PO SCH (09:29)
[2019-01-23] MEDS: HALFPRIN EC PO SCH (09:29)
[2019-01-23] MEDS: LASIX PO SCH ×2 (09:30→21:39)
[2019-01-23] MEDS: LOPRESSOR PO SCH ×2 (09:31→21:39)
[2019-01-23] MEDS: SODIUM CHLORIDE FLUSH SYRINGE 10 ML IV SCH ×2 (09:31→21:40)
[2019-01-23] MEDS: ZESTRIL PO SCH (09:31)
--- NOTE | 2019-01-23 10:57 | Event Note ---
Date: 01/23/19 Patient needs to be evaluated by cardiology for risk stratification prior to EGD, which is pending for today. Spoke with hospitalist (Dr. Torres) and Lisa LIU for cardiology who are aware.
--- NOTE | 2019-01-23 11:20 | Consultation ---
History of Present Illness Consult date: 01/23/19 Consult reason: other (clearance for EGD) History of present illness: Mr. Blount is a 68 y/o male with a medical history significant for CHF, a past IN, CVA x2, hypertension, diabetes and peptic ulcer disease who presented to [facility] with an upper GI bleed and hypotension. He is previously unknown to our practice and reports he sees a laundry aid at [facility] in [place]. He reports that per his doctor, he had an IN, has CHF and that "only two chambers are working." No cardiac imaging is available for review. Past History Past Medical History: heart failure, hypertension, hyperlipidemia, stroke, other (PUD) Past Surgical History: No surgical history, Other (reviewed) Social history: single Family history: hypertension Medications and Allergies Allergies Allergy/AdvReac Type Severity Reaction Status Date / Time No Known Allergies Allergy Verified 06/21/18 12:40 Home Medications Medication Instructions Recorded Confirmed Last Taken Type HYDROcodone/APAP 5-325 [[place] 1 each PO Q6HR PRN #12 tablet 06/21/18 01/22/19 Unknown Rx 5/325] Aspirin [Aspir-Low] 81 mg PO QAM 09/01/18 01/22/19 Unknown History ISOSORBIDE MONOnitrate [Imdur ER] 30 mg PO DAILY 09/01/18 01/22/19 Unknown History Lisinopril [Zestril TAB] 10 mg PO QDAY 09/01/18 01/22/19 Unknown History Metoprolol [Lopressor] 25 mg PO BID 09/01/18 01/22/19 Unknown History metFORMIN [Glucophage] 500 mg PO BID 09/01/18 01/22/19 Unknown History Furosemide [Lasix TAB] 40 mg PO BID #60 tablet 09/02/18 01/22/19 Unknown Rx Cholecalciferol Vit D3 [Vitamin D3 2,000 unit PO BID 01/22/19 01/22/19 Unknown History 1,000 UNIT TAB] Active Meds: Active Medications Acetaminophen (Tylenol) 650 mg PO Q4H PRN PRN Reason: Pain MILD(1-3)/Fever >100.5/DICK Acetaminophen/Hydrocodone Bitart ([place] 5/325) 1 each PO Q6HR PRN PRN Reason: Pain Aspirin (Halfprin Ec) 81 mg PO QAM ANGELA Last Admin: 01/23/19 09:29 Dose: Not Given Documented by: Furosemide (Lasix) 40 mg PO BID [facility] Last Admin: 01/23/19 09:30 Dose: Not Given Documented by: Sodium Chloride (Nacl 0.9% 1000 Ml) 1,000 mls @ 50 mls/hr IV DIRECT [facility] Isosorbide Mononitrate (Imdur) 30 mg PO DAILY [facility] Last Admin: 01/23/19 09:29 Dose: Not Given Documented by: Lisinopril (Zestril) 10 mg PO QDAY [facility] Last Admin: 01/23/19 09:31 Dose: Not Given Documented by: Metoprolol Tartrate (Lopressor) 25 mg PO BID [facility] Last Admin: 01/23/19 09:31 Dose: Not Given Documented by: Ondansetron HCl (Zofran) 4 mg IV Q8H PRN PRN Reason: Nausea And Vomiting Pantoprazole Sodium (Protonix) 40 mg IV BID [facility] Last Admin: 01/23/19 09:26 Dose: 40 mg Documented by: Sodium Chloride (Sodium Chloride Flush Syringe 10 Ml) 10 ml IV BID [facility] Last Admin: 01/23/19 09:31 Dose: 10 ml Documented by: Sodium Chloride (Sodium Chloride Flush Syringe 10 Ml) 10 ml IV PRN PRN PRN Reason: LINE FLUSH Review of Systems All systems: negative Gastrointestinal: hematemesis Physical Examination Vital Signs Temp Pulse Resp BP Pulse Ox 98.6 F 54 L 16 85/59 100 01/22/19 12:51 01/22/19 12:51 01/22/19 12:51 01/22/19 12:51 01/22/19 12:51 General appearance: no acute distress HEENT: Positive: PERRL Neck: Positive: neck supple Cardiac: Positive: Reg Rate and Rhythm Lungs: Positive: clear to auscultation Neuro: Positive: Grossly Intact Abdomen: Positive: Unremarkable Male genitourinary: Positive: deferred Skin: Positive: Clear Musculoskeletal: Normal Range of Motion Extremities: Present: normal Results 01/23/19 05:02 01/23/19 06:54 Cardiac Enzymes 01/22/19 Range/Units 13:11 AST 12 (5-40) units/L Coagulation 01/22/19 Range/Units 13:11 PT 13.7 (12.2-14.9) Sec. INR 1.08 (0.87-1.13) APTT 28.9 (24.2-36.6) Sec. CBC 01/22/19 01/23/19 Range/Units 13:11 05:02 WBC 8.9 6.5 (4.5-11.0) K/mm3 RBC 2.91 L 2.93 L (3.65-5.03) M/mm3 Hgb 8.9 L 8.7 L (11.8-15.2) gm/dl Hct 25.5 L 25.4 L (35.5-45.6) % Plt Count 400 351 (140-440) K/mm3 Lymph # 2.7 2.3 (1.2-5.4) K/mm3 [place] # 0.8 0.6 (0.0-0.8) K/mm3 Eos # 0.1 0.1 (0.0-0.4) K/mm3 Baso # 0.1 0.0 (0.0-0.1) K/mm3 Comprehensive Metabolic Panel 01/22/19 01/23/19 01/23/19 Range/Units 13:11 05:02 06:54 Sodium 137 161 H* D 139 D (137-145) mmol/L Potassium 4.8 4.7 (3.6-5.0) mmol/L Chloride 97.9 L 125.9 H (98-107) mmol/L Carbon Dioxide 25 24 (22-30) mmol/L BUN 22 H 18 (9-20) mg/dL Creatinine 1.4 1.3 (0.8-1.5) mg/dL Glucose 97 88 (75-100) mg/dL Calcium 9.4 8.8 (8.4-10.2) mg/dL AST 12 (5-40) units/L ALT 15 (7-56) units/L Alkaline Phosphatase 80 (35-129) units/L Total Protein 7.0 (6.3-8.2) g/dL Albumin 4.3 (3.9-5) g/dL - Imaging and Cardiology EKG: report reviewed (SR with LBBB) EKG interpretations - Telemetry EKG Rhythm: Sinus Rhythm AV and intraventricular conduction: left bundle branch block Assessment and Plan Mr. Blount is a 68 y/o male with a history of CHF, IN, hypertension, CVA x2 and PUD admitted with an upper GIB. He reports he sees a laundry aid in [place], but does not know the doctor's name. We will attempt to obtain some records from his primary care physician's office if possible. At this time, there are no contraindications to proceeding with an EGD from a cardiac standpoint. The patient has been seen in conjunction with Dr. Patino, who agrees with the assessment and plan. - Patient Problems (1) UGIB (upper gastrointestinal bleed) Current Visit: Yes Status: Acute (2) Anemia Current Visit: Yes Status: Acute (3) HTN (hypertension) Current Visit: Yes Status: Chronic Qualifiers: Hypertension type: essential hypertension Qualified Code(s): I10 - Essential (primary) hypertension (4) PUD (peptic ulcer disease) Current Visit: Yes Status: Chronic (5) CHF (congestive heart failure) Current Visit: Yes Status: Chronic
--- NOTE | 2019-01-23 12:11 | Progress Note ---
Assessment and Plan Assessment and plan: 68 YO Male with HTN, CVA, CHF, HLD, DM, PUD presents to ED for evaluation. Pt states that he has experienced multiple episodes of nausea, vomiting, coffee- ground emesis, and black tarry stools over the past 2 weeks, with recurrent symptoms over the past 2 days. Pt was seen in his PCP office today and was instructed to seem further care at [facility]. Pt transported to [facility] via private vehicle. Pt seen and evaluated in ED and found to have heme positive stool, as well as symptoms consistent with GI Bleeding as well as hypotension with SBP in the 70's. Pt treated with IVF resuscitation therapy with resolution of hypotension. Pt also reports epigastric discomfort which is relieved with meals. Pt denies fever, chills, CP, Palpitations, NVD, Trauma, BRBPR, skin rash, productive cough, or recent ill contacts. Pt admitted to [facility] and placed on remote telemetry. NO prior admission for review. All listed medication reconciled at time of admission. (1) UGIB (upper gastrointestinal bleed) - GI consulted and EGD - H&H stable, continue to monitor (2) CHF (congestive heart failure) - Continue medications - Cardiology consulted for clearance (3) Anemia - H&H stable (4) HTN (hypertension) - controlled (5) HLD (hyperlipidemia) - statin therapy (6) PUD (peptic ulcer disease) PPI therapy, supportive care. (7) DVT prophylaxis SCD to BLE while in bed, supportive care. History Interval history: Patient was seen and evaluated this morning, patient didn't have any complaints Hospitalist Physical - Physical exam Narrative exam: Not in cardiopulmonary distress. The patient appeared well nourished and normally developed. Vital signs as documented. Head exam is unremarkable. No scleral icterus . Neck is without jugular venous distension, thyromegaly, or carotid bruits. Lungs are clear to auscultation. Cardiac exam reveals regular rate and Rhythm. Abdominal exam reveals normal bowel sounds. Extremities are nonedematous and both femoral and pedal pulses are normal. PUBLIC HEALTH SPECIALIST: Alert and oriented 3. No focal weakness. - Constitutional Vitals: Temp Pulse Resp BP Pulse Ox 97.9 F 74 18 95/56 95 01/23/19 08:00 01/23/19 10:00 01/23/19 08:00 01/23/19 08:00 01/23/19 07:48 General appearance: Present: no acute distress Results - Labs CBC & Chem 7: 01/23/19 05:02 01/23/19 06:54 Labs: Laboratory Last Values WBC 6.5 K/mm3 (4.5-11.0) 01/23/19 05:02 RBC 2.93 M/mm3 (3.65-5.03) L 01/23/19 05:02 Hgb 8.7 gm/dl (11.8-15.2) L 01/23/19 05:02 Hct 25.4 % (35.5-45.6) L 01/23/19 05:02 MCV 87 fl (84-94) 01/23/19 05:02 MCH 30 pg (28-32) 01/23/19 05:02 MCHC 34 % (32-34) 01/23/19 05:02 RDW 16.1 % (13.2-15.2) H 01/23/19 05:02 Plt Count 351 K/mm3 (140-440) 01/23/19 05:02 Lymph % (Auto) 35.6 % (13.4-35.0) H 01/23/19 05:02 [place] % (Auto) 8.9 % (0.0-7.3) H 01/23/19 05:02 Eos % (Auto) 1.9 % (0.0-4.3) 01/23/19 05:02 Baso % (Auto) 0.2 % (0.0-1.8) 01/23/19 05:02 Lymph # 2.3 K/mm3 (1.2-5.4) 01/23/19 05:02 [place] # 0.6 K/mm3 (0.0-0.8) 01/23/19 05:02 Eos # 0.1 K/mm3 (0.0-0.4) 01/23/19 05:02 Baso # 0.0 K/mm3 (0.0-0.1) 01/23/19 05:02 Seg Neutrophils % 53.4 % (40.0-70.0) 01/23/19 05:02 Seg Neutrophils # 3.5 K/mm3 (1.8-7.7) 01/23/19 05:02 PT 13.7 Sec. (12.2-14.9) 01/22/19 13:11 INR 1.08 (0.87-1.13) 01/22/19 13:11 APTT 28.9 Sec. (24.2-36.6) 01/22/19 13:11 Sodium 139 mmol/L (137-145) D 01/23/19 06:54 Potassium 4.7 mmol/L (3.6-5.0) 01/23/19 05:02 Chloride 125.9 mmol/L (98-107) H 01/23/19 05:02 Carbon Dioxide 24 mmol/L (22-30) 01/23/19 05:02 16 mmol/L 01/23/19 05:02 BUN 18 mg/dL (9-20) 01/23/19 05:02 1.3 mg/dL (0.8-1.5) 01/23/19 05:02 Estimated GFR > 60 ml/min 01/23/19 05:02 14 % 01/23/19 05:02 Glucose 88 mg/dL (75-100) 01/23/19 05:02 POC Glucose 79 (70-105) 01/23/19 11:25 Calcium 8.8 mg/dL (8.4-10.2) 01/23/19 05:02 0.80 mg/dL (0.1-1.2) 01/22/19 13:11 AST 12 units/L (5-40) 01/22/19 13:11 ALT 15 units/L (7-56) 01/22/19 13:11 80 units/L (35-129) 01/22/19 13:11 7.0 g/dL (6.3-8.2) 01/22/19 13:11 4.3 g/dL (3.9-5) 01/22/19 13:11 1.6 % 01/22/19 13:11 21 units/L (13-60) 01/22/19 13:11 Blood Type O POSITIVE 01/22/19 13:20 Antibody Screen Negative 01/22/19 13:20 Crossmatch See Detail 01/22/19 13:20 Active Medications - Current Medications Current Medications: Generic Name Dose Route Start Last Admin Trade Name Marilu PRN Reason Stop Dose Admin Acetaminophen 650 mg 01/22/19 15:50 Tylenol PO Q4H PRN Pain MILD(1-3)/Fever >100.5/DICK Acetaminophen/Hydrocodone Bitart 1 each 01/22/19 15:25 [place] 5/325 PO Q6HR PRN Pain Aspirin 81 mg 01/23/19 10:00 01/23/19 09:29 Halfprin Ec PO Not Given QAM REPLACED BY [facility] Furosemide 40 mg 01/22/19 22:00 01/23/19 09:30 Lasix PO Not Given BID REPLACED BY [facility] Sodium Chloride 1,000 mls @ 50 mls/hr 01/23/19 09:00 Nacl 0.9% 1000 Ml IV DIRECT REPLACED BY [facility] Isosorbide Mononitrate 30 mg 01/23/19 10:00 01/23/19 09:29 Imdur PO Not Given DAILY REPLACED BY [facility] Lisinopril 10 mg 01/23/19 10:00 01/23/19 09:31 Zestril PO Not Given QDAY REPLACED BY [facility] Metoprolol Tartrate 25 mg 01/22/19 22:00 01/23/19 09:31 Lopressor PO Not Given BID REPLACED BY [facility] Ondansetron HCl 4 mg 01/22/19 15:50 Zofran IV Q8H PRN Nausea And Vomiting Pantoprazole Sodium 40 mg 01/22/19 22:00 01/23/19 09:26 Protonix IV 40 mg BID REPLACED BY [facility] Administration Sodium Chloride 10 ml 01/22/19 22:00 01/23/19 09:31 Sodium Chloride Flush Syringe 10 Ml IV 10 ml BID REPLACED BY [facility] Administration Sodium Chloride 10 ml 01/22/19 15:50 Sodium Chloride Flush Syringe 10 Ml IV PRN PRN LINE FLUSH
[2019-01-23] MEDS ORDERED: DIPRIVAN 10 MG/ML IV ONE (12:21)
[2019-01-23] MEDS ORDERED: VERSED ONE (13:39)
--- NOTE | 2019-01-23 14:05 | Operative Report ---
Operative Report Operative Report: Date: 01/23/2019 Endoscopist: Justin Silva MD Procedure: EGD with biopsies PREOPERATIVE DIAGNOSIS and POSTOPERATIVE DIAGNOSIS: anemia, melena ESTIMATED BLOOD LOSS: minimal DESCRIPTION OF PROCEDURE: A high-resolution EGD scope was passed through the oropharynx, esophagus and to the stomach. The scope was carefully withdrawn. Retroflexion was performed in the stomach. At the end of the procedure, the scope was cleaned using normal technique. Vital signs monitored continuously throughout. SEDATION: Provided by Anesthesiology Services. COMPLICATIONS: None. FINDINGS: * There was a clean based deep cratered ulcer (~ 1 cm) without bleeding stigmata in the lesser curve body. Biopsies were obtained from the ulcer site. * There were two clean based linear ulcers without bleeding stigmata (one about 1 cm and another less than 1 cm) in the antrum. Biopsies were obtained from the ulcer site. * Mild erythematous mucosa noted in the antrum and gastric body. Biopsies were obtained. * GE junction at 40 cm from the incisors * The esophagus appeared normal. RECOMMENDATIONS: * Continue with protonix IV bid and can switch to oral dose tomorrow if H/H stable. * Resume diet. * monitor H/H. * avoid NSAIDs * Will follow.
--- NOTE | 2019-01-23 15:26 | Anesthesia Consultation ---
Anesthesia Consult and Med Hx Date of service: 01/23/19 - Airway Anesthetic Teeth Evaluation: Poor, Edentulous ROM Head & Neck: Adequate Mental/Hyoid Distance: Adequate Mallampati Class: Class III Intubation Access Assessment: Possibly Difficult - Pulmonary Exam CTA: Yes - Cardiac Exam Cardiac Exam: RRR - Pre-Operative Health Status ASA Pre-Surgery Classification: ASA3 Proposed Anesthetic Plan: MAC - Pulmonary Hx Smoking: Yes (quit 1 month ago) SOB: Yes (chronic with exertion, <4mets functional capacity) Home Oxygen Therapy: No - Cardiovascular System Hx Hypertension: Yes Hx Heart Attack/AMI: Yes (patient originally endorsed hx [place] but later denied) Hx Angina: No Hx Percutaneous Transluminal Coronary Angioplasty (PTCA): No Hx Cardia Arrhythmia: Yes (NSR w/ LBBB on admission EKG) Hx Pacemaker: No Hx Internal Defibrillator: No - Central Nervous System Hx Seizures: No CVA: Yes (x2; most recent last year) - Gastrointestinal Hx Gastroesophageal Reflux Disease: No (UGIB) - Endocrine 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 Patient reports that he has possible hx KS and hx CVA x2 and follows with cad developer however no cardiac records available in EMR. Cardiomegaly noted on imaging. Patient is poor historian. Reports stable OBRIEN and 2 pillow orthopnea for many years. No signs/symptoms of acute exacerbation of underlying cardiac condition at this time. Explained risk of major adverse cardiac event in the linda- anesthetic period given reported medical hx and patient gives consent for sedation.
--- NOTE | 2019-01-23 15:27 | Anesthesia Day of Surgery ---
Anesthesia Day of Surgery - Day of Surgery Patient Examined: Yes Patient H&P Reviewed: Yes Patient is NPO: Yes Cardiac Clearance: Yes (evaluated by roll trucker prior to procedure.)
[2019-01-24 06:12] LABS: Hematocrit 25.3 % (35.5-45.6); Hemoglobin 8.8 gm/dl (11.8-15.2)
[2019-01-24] MEDS: ZESTRIL PO SCH (10:00)
[2019-01-24] MEDS: LOPRESSOR PO SCH (10:00)
--- NOTE | 2019-01-24 10:11 | Progress Note ---
Assessment and Plan The patient appears stable from a cardiac standpoint. We will obtain echocardiogram, since medical records from [facility] are nonspecific r/t overall cardiac history. Further recommendations pending hospital course. The patient has been seen in conjunction with Dr. Patino, who agrees with the assessment and plan. - Patient Problems (1) UGIB (upper gastrointestinal bleed) Current Visit: Yes Status: Acute (2) Anemia Current Visit: Yes Status: Acute (3) HTN (hypertension) Current Visit: Yes Status: Chronic Qualifiers: Hypertension type: essential hypertension Qualified Code(s): I10 - Essential (primary) hypertension (4) PUD (peptic ulcer disease) Current Visit: Yes Status: Chronic (5) CHF (congestive heart failure) Current Visit: Yes Status: Chronic Subjective Date of service: 01/24/19 Interval history: Patient is lying in bed in [facility]. He is s/p EGD on 01/23/19. Objective Vital Signs Temp Pulse Resp BP BP Pulse Ox 01/24/19 07:27 98.0 F 60 18 95/57 99 01/24/19 01:41 98.7 F 65 20 107/64 100 01/24/19 00:09 76 01/23/19 22:00 20 100 01/23/19 21:39 77 109/56 01/23/19 20:09 98.7 F 77 18 109/56 100 01/23/19 14:45 98.1 F 75 18 115/44 01/23/19 14:25 85 14 121/66 100 01/23/19 14:12 74 12 96/53 100 01/23/19 13:54 98.3 F 81 16 106/54 96 01/23/19 12:31 98.1 F 84 18 114/79 100 - Physical Examination General: No Apparent Distress HEENT: Positive: PERRL Neck: Positive: neck supple Cardiac: Positive: Reg Rate and Rhythm Lungs: Positive: Normal Exam Neuro: Positive: Grossly Intact Abdomen: Positive: Unremarkable /Rectal: Other (deferred) Skin: Positive: Clear Musculoskeletal: Normal Range of Motion Extremities: Present: normal - Labs and Meds CBC 01/24/19 Range/Units 05:34 Hgb 8.8 L (11.8-15.2) gm/dl Hct 25.3 L (35.5-45.6) % - Imaging and Cardiology EKG: report reviewed (SR with LBBB) AV and intraventricular conduction: left bundle branch block
--- NOTE | 2019-01-24 10:29 | Gastroenterology Progress Note ---
Assessment and Plan 1.UGIB 2.melena/CGE 3.H/o CHF -H/H 8.8/25.3- stable -continue to monitor H/H and transfuse as needed -no active signs of overnight or this am -s/p EGD 01/23/19 that showed: There was a clean based deep cratered ulcer (~ 1 cm) without bleeding stigmata in the lesser curve body. Biopsies were obtained from the ulcer site. * There were two clean based linear ulcers without bleeding stigmata (one about 1 cm and another less than 1 cm) in the antrum. Biopsies were obtained from the ulcer site. * Mild erythematous mucosa noted in the antrum and gastric body. Biopsies were obtained.- results pending; f/u in clinic * GE junction at 40 cm from the incisors * The esophagus appeared normal. -clinically, patient is stable w/o GI complaints. Tolerating diet. -continue PPI BID -avoid NSAIDS -continue supportive care -patient is okay to be d/c per GI standpoint on PPI as above with f/u in clinic -will sign off, please call if needed Subjective Date of service: 01/24/19 Principal diagnosis: GIB Interval history: Patient resting in bed this am w/o acute distress. No active signs of bleeding overnight or this am. Denies abd pain or N/v. Tolerating diet. Objective - Constitutional Vitals: Temp Pulse Resp BP Pulse Ox 98.0 F 60 18 95/57 99 01/24/19 07:27 01/24/19 07:27 01/24/19 07:27 01/24/19 07:27 01/24/19 07:27 General appearance: no acute distress - Respiratory Respiratory effort: normal - Cardiovascular Rhythm: regular - Gastrointestinal General gastrointestinal: Present: soft, non-tender, non-distended, normal bowel sounds - Labs CBC & Chem 7: 01/24/19 05:34 01/23/19 06:54 Labs: Laboratory Results - last 24 hr 01/23/19 01/23/19 01/23/19 11:25 12:34 14:05 Hgb Hct POC Glucose 79 95 82 01/23/19 01/23/19 01/24/19 16:13 21:58 05:34 Hgb 8.8 L Hct 25.3 L POC Glucose 116 H 102 01/24/19 07:33 Hgb Hct POC Glucose 114 H
[2019-01-24] MEDS: LASIX PO SCH ×2 (11:01→22:57)
[2019-01-24] MEDS: SODIUM CHLORIDE FLUSH SYRINGE 10 ML IV SCH ×2 (11:02→22:59)
[2019-01-24] MEDS: IMDUR PO SCH (11:04)
[2019-01-24] MEDS: HALFPRIN EC PO SCH (11:08)
--- NOTE | 2019-01-24 14:03 | Discharge Summary ---
Providers - Providers Date of Admission: 01/22/19 15:50 Date of discharge: 01/25/19 Attending physician: KEVON OLIVARES MD 01/22/19 13:37 Consult to Physician [CONS] Urgent Comment: Dr. Ghosh has seen the patient/ rhett Consulting Provider: JOEY JAY Physician Instructions: Reason For Exam: GIB 01/23/19 09:26 Consult to Physician [CONS] Routine Comment: paged overhead/ rhett Consulting Provider: BENOIT ULLOA Physician Instructions: Reason For Exam: CHF, risk stratification for EGD [facility] Reason for admission: Upper GI bleed, chronic systolic CHF Condition: Stable Pertinent studies: EGD Echocardiogram Hospital course: 68 YO Male with HTN, CVA, CHF, HLD, DM, PUD presents to ED for evaluation. Pt states that he has experienced multiple episodes of nausea, vomiting, coffee- ground emesis, and black tarry stools over the past 2 weeks, with recurrent symptoms over the past 2 days. Pt was seen in his PCP office today and was instructed to seem further care at [facility]. Pt transported to [facility] via private vehicle. Pt seen and evaluated in ED and found to have heme positive stool, as well as symptoms consistent with GI Bleeding as well as hypotension with SBP in the 70's. Pt treated with IVF resuscitation therapy with resolution of hypotension. Pt also reports epigastric discomfort which is relieved with meals. Pt denies fever, chills, CP, Palpitations, NVD, Trauma, BRBPR, skin rash, productive cough, or recent ill contacts. Pt admitted to [facility] and placed on remote telemetry. Patient admitted to the floor and GI was consulted and EGD was done which showed gastric ulcer with no active bleeding and recommend to discharge the patient with PPI. Patient's H/H was stable. Patient has history of CHF with appropriate medications and Echo was done and EF was 10%. Cardiology recommend to discharge with lifevest with the plan O/P evaluation for pacemaker placement. Patient understood the plan was given lifevest and will follow in the office. - Patient Problems (1) Anemia Current Visit: Yes Status: Acute (2) HLD (hyperlipidemia) Current Visit: Yes Status: Acute Qualifiers: Hyperlipidemia type: mixed hyperlipidemia Qualified Code(s): E78.2 - Mixed hyperlipidemia (3) UGIB (upper gastrointestinal bleed) Current Visit: Yes Status: Acute (4) CHF (congestive heart failure) systolic Current Visit: Yes Status: Chronic (5) HTN (hypertension) Current Visit: Yes Status: Chronic Qualifiers: Hypertension type: essential hypertension Qualified Code(s): I10 - Essential (primary) hypertension (6) PUD (peptic ulcer disease) Current Visit: Yes Status: Chronic Disposition: DC-01 TO HOME OR SELFCARE Time spent for discharge: 32 minutes - Discharge Diagnoses (1) Anemia Status: Acute (2) HLD (hyperlipidemia) Status: Acute Qualifiers: Hyperlipidemia type: mixed hyperlipidemia Qualified Code(s): E78.2 - Mixed hyperlipidemia (3) UGIB (upper gastrointestinal bleed) Status: Acute (4) CHF (congestive heart failure) Status: Chronic (5) HTN (hypertension) Status: Chronic Qualifiers: Hypertension type: essential hypertension Qualified Code(s): I10 - Essential (primary) hypertension (6) PUD (peptic ulcer disease) Status: Chronic Core Measure Documentation - Palliative Care Palliative Care/ Comfort Measures: Not Applicable - Core Measures Any of the following diagnoses?: heart failure - Heart Failure Discharge Requirements [facility] for LVSD if EF <40%: Yes Beta edyta at discharge: Yes Exam - Physical Exam Narrative exam: Not in cardiopulmonary distress. The patient appeared well nourished and normally developed. Vital signs as documented. Head exam is unremarkable. No scleral icterus . Neck is without jugular venous distension, thyromegaly, or carotid bruits. Lungs are clear to auscultation. Cardiac exam reveals regular rate and Rhythm. Abdominal exam reveals normal bowel sounds. Extremities are nonedematous and both femoral and pedal pulses are normal. 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 No focal weakness. - Constitutional Vitals: Temp Pulse Resp BP Pulse Ox 98.0 F 60 18 95/57 99 01/24/19 07:27 01/24/19 10:00 01/24/19 07:27 01/24/19 07:27 01/24/19 07:27 Plan Activity: no restrictions Weight Bearing Status: Full Weight Bearing Diet: low cholesterol, low salt Follow up with: BRUNA BENAVIDES MD [Referring] - 3-5 Days ISMAEL-BENOIT HERNANDEZ MD [Staff Physician] - 7 Days JOHNNY ESCOBAR MD [Staff Physician] - 10 Days Forms: Accompanied Note Prescriptions: Pantoprazole [Protonix TAB] 40 mg PO BID #60 tablet
--- NOTE | 2019-01-24 14:03 | Event Note ---
Date: 01/24/19 The patient is stable from a cardiac standpoint and may be discharged home from our perspective. Follow up in one week for an echocardiogram and office visit with Dr. Patino. Call for an appointment.
[2019-01-24] MEDS: PROTONIX IV SCH (14:04)
--- NOTE | 2019-01-24 15:28 | Event Note ---
Date: 01/24/19 Echo done on 01/24/19 reviewed. EF is 10 percent. Will need to be discharged on metoprolol succinate and home Lasix and lisinopril doses. Will discuss need for LifeVest/ICD with patient prior to discharge. Christopher Ziegler NP / Berto Patino MD
--- NOTE | 2019-01-24 16:19 | Event Note ---
Date: 01/24/19 Discussed the importance of the LifeVest and subsequent ICD with patient. He is amenable to proceed with LifeVest at this time and will be fitted prior to discharge. Case management is aware and is facilitating. He will follow up in our office with Dr. Emmanuel and Dr. Patino. Also switched patient to metoprolol succinate per HFrEF guidelines.
--- NOTE | 2019-01-24 17:20 | Progress Note ---
Assessment and Plan Assessment and plan: 68 YO Male with HTN, CVA, CHF, HLD, DM, PUD presents to ED for evaluation. Pt states that he has experienced multiple episodes of nausea, vomiting, coffee- ground emesis, and black tarry stools over the past 2 weeks, with recurrent symptoms over the past 2 days. Pt was seen in his PCP office today and was instructed to seem further care at [facility]. Pt transported to [facility] via private vehicle. Pt seen and evaluated in ED and found to have heme positive stool, as well as symptoms consistent with GI Bleeding as well as hypotension with SBP in the 70's. Pt treated with IVF resuscitation therapy with resolution of hypotension. Pt also reports epigastric discomfort which is relieved with meals. Pt denies fever, chills, CP, Palpitations, NVD, Trauma, BRBPR, skin rash, productive cough, or recent ill contacts. Pt admitted to [facility] and placed on remote telemetry. NO prior admission for review. All listed medication reconciled at time of admission. (1) UGIB (upper gastrointestinal bleed) - GI consulted and EGD - H&H stable, continue to monitor (2) CHF (congestive heart failure) - Echo was done EF was 10% and cardiology wants to have a lifevest - Continue home medications (3) Anemia - H&H stable (4) HTN (hypertension) - controlled (5) HLD (hyperlipidemia) - statin therapy (6) PUD (peptic ulcer disease) PPI therapy, supportive care. (7) DVT prophylaxis Disposition; pending lifevest. - Patient Problems (1) Anemia Current Visit: Yes Status: Acute (2) HLD (hyperlipidemia) Current Visit: Yes Status: Acute Qualifiers: Hyperlipidemia type: mixed hyperlipidemia Qualified Code(s): E78.2 - Mixed hyperlipidemia (3) UGIB (upper gastrointestinal bleed) Current Visit: Yes Status: Acute (4) CHF (congestive heart failure) Current Visit: Yes Status: Chronic (5) HTN (hypertension) Current Visit: Yes Status: Chronic Qualifiers: Hypertension type: essential hypertension Qualified Code(s): I10 - Essential (primary) hypertension (6) PUD (peptic ulcer disease) Current Visit: Yes Status: Chronic History Interval history: Patient was seen and evaluated this morning, patient didn't have any complaints Hospitalist Physical - Physical exam Narrative exam: Not in cardiopulmonary distress. The patient appeared well nourished and normally developed. Vital signs as documented. Head exam is unremarkable. No scleral icterus . Neck is without jugular venous distension, thyromegaly, or carotid bruits. Lungs are clear to auscultation. Cardiac exam reveals regular rate and Rhythm. Abdominal exam reveals normal bowel sounds. Extremities are nonedematous and both femoral and pedal pulses are normal. 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 No focal weakness. - Constitutional Vitals: Temp Pulse Resp BP Pulse Ox 98.4 F 84 18 97/58 96 01/24/19 13:46 01/24/19 13:46 01/24/19 13:46 01/24/19 13:46 01/24/19 13:46 General appearance: Present: no acute distress Results - Labs CBC & Chem 7: 01/24/19 05:34 01/23/19 06:54 Labs: Laboratory Last Values WBC 6.5 K/mm3 (4.5-11.0) 01/23/19 05:02 RBC 2.93 M/mm3 (3.65-5.03) L 01/23/19 05:02 Hgb 8.8 gm/dl (11.8-15.2) L 01/24/19 05:34 Hct 25.3 % (35.5-45.6) L 01/24/19 05:34 MCV 87 fl (84-94) 01/23/19 05:02 MCH 30 pg (28-32) 01/23/19 05:02 MCHC 34 % (32-34) 01/23/19 05:02 RDW 16.1 % (13.2-15.2) H 01/23/19 05:02 Plt Count 351 K/mm3 (140-440) 01/23/19 05:02 Lymph % (Auto) 35.6 % (13.4-35.0) H 01/23/19 05:02 Butts % (Auto) 8.9 % (0.0-7.3) H 01/23/19 05:02 Eos % (Auto) 1.9 % (0.0-4.3) 01/23/19 05:02 Baso % (Auto) 0.2 % (0.0-1.8) 01/23/19 05:02 Lymph # 2.3 K/mm3 (1.2-5.4) 01/23/19 05:02 Butts # 0.6 K/mm3 (0.0-0.8) 01/23/19 05:02 Eos # 0.1 K/mm3 (0.0-0.4) 01/23/19 05:02 Baso # 0.0 K/mm3 (0.0-0.1) 01/23/19 05:02 Seg Neutrophils % 53.4 % (40.0-70.0) 01/23/19 05:02 Seg Neutrophils # 3.5 K/mm3 (1.8-7.7) 01/23/19 05:02 PT 13.7 Sec. (12.2-14.9) 01/22/19 13:11 INR 1.08 (0.87-1.13) 01/22/19 13:11 APTT 28.9 Sec. (24.2-36.6) 01/22/19 13:11 Sodium 139 mmol/L (137-145) D 01/23/19 06:54 Potassium 4.7 mmol/L (3.6-5.0) 01/23/19 05:02 Chloride 125.9 mmol/L (98-107) H 01/23/19 05:02 Carbon Dioxide 24 mmol/L (22-30) 01/23/19 05:02 16 mmol/L 01/23/19 05:02 BUN 18 mg/dL (9-20) 01/23/19 05:02 1.3 mg/dL (0.8-1.5) 01/23/19 05:02 Estimated GFR > 60 ml/min 01/23/19 05:02 14 % 01/23/19 05:02 Glucose 88 mg/dL (75-100) 01/23/19 05:02 POC Glucose 95 (70-105) 01/24/19 17:15 Calcium 8.8 mg/dL (8.4-10.2) 01/23/19 05:02 0.80 mg/dL (0.1-1.2) 01/22/19 13:11 AST 12 units/L (5-40) 01/22/19 13:11 ALT 15 units/L (7-56) 01/22/19 13:11 80 units/L (35-129) 01/22/19 13:11 7.0 g/dL (6.3-8.2) 01/22/19 13:11 4.3 g/dL (3.9-5) 01/22/19 13:11 1.6 % 01/22/19 13:11 21 units/L (13-60) 01/22/19 13:11 Blood Type O POSITIVE 01/22/19 13:20 Antibody Screen Negative 01/22/19 13:20 Crossmatch See Detail 01/22/19 13:20 Active Medications - Current Medications Current Medications: Generic Name Dose Route Start Last Admin Trade Name Freq PRN Reason Stop Dose Admin Acetaminophen 650 mg 01/22/19 15:50 Tylenol PO Q4H PRN Pain MILD(1-3)/Fever >100.5/DICK Acetaminophen/Hydrocodone Bitart 1 each 01/22/19 15:25 Excello 5/325 PO Q6HR PRN Pain Aspirin 81 mg 01/23/19 10:00 01/24/19 11:08 Halfprin Ec PO Not Given QAM ANGELA Furosemide 40 mg 01/22/19 22:00 01/24/19 11:01 Lasix PO 40 mg BID ANGELA Administration Sodium Chloride 1,000 mls @ 50 mls/hr 01/23/19 13:00 01/23/19 12:25 Nacl 0.9% 1000 Ml IV 50 mls/hr DIRECT ANGELA Administration Isosorbide Mononitrate 30 mg 01/23/19 10:00 01/24/19 11:04 Imdur PO 30 mg DAILY ANGELA Administration Lisinopril 10 mg 01/23/19 10:00 01/24/19 10:00 Zestril PO Not Given QDAY ANGELA Metoprolol Succinate 100 mg 01/25/19 10:00 Toprol Xl PO QDAY ANGELA Ondansetron HCl 4 mg 01/22/19 15:50 Zofran IV Q8H PRN Nausea And Vomiting Pantoprazole Sodium 40 mg 01/24/19 22:00 Protonix PO BID ANGELA Sodium Chloride 10 ml 01/22/19 22:00 01/24/19 11:02 Sodium Chloride Flush Syringe 10 Ml IV 10 ml BID ANGELA Administration Sodium Chloride 10 ml 01/22/19 15:50 Sodium Chloride Flush Syringe 10 Ml IV PRN PRN LINE FLUSH Nutrition/Malnutrition Assess - Dietary Evaluation Nutrition/Malnutrition Findings: Nutrition Notes Start: 01/23/19 13:53 Freq: Status: Active Protocol: Document 01/23/19 13:53 RM (Rec: 01/23/19 14:08 RM [id number]) Nutrition Notes Need for Assessment generated from: wrapper stemmer hand Initial or Follow up Assessment Current Diagnosis Diabetes,Hypertension,Heart Failure,Stroke,Hyperlipidemia Other Pertinent Diagnosis Upper GIB, Coffee ground emesis Current Diet NPO Labs/Tests Reviewed Pertinent Medications Zofran Height 5 ft 8 in Weight 77.111 kg Ducor Body Weight (kg) 70.00 BMI 25.8 Subjective/Other Information Screened for chewing difficulty. Pt being transferred to procedure at time of visit. Burn Absent Trauma Absent #1 Nutrition Diagnosis Predicted suboptimal energy intake Etiology upper GIB As Evidenced by Signs and Symptoms NPO status Is patient on ventilator? No Is Patient Ambulatory and/or Out of Bed Yes REE-([facility]-ambulatory/OOB) [ 1963.793 [id number]] Calculation Used for Recommendations [facility] Additional Notes Protein Needs: 77-93g (1-1.2g/ kg) Fluid Needs: 1 ml/kcal Nutrition Intervention Change Diet Order: Advance diet when medically able Add Supplement/Snack (indicate name/kcal Glucerna 1 daily once diet /protein ) advanced Provides kCal: 220 Provides Protein (gm) 10 Goal #1 Diet advancement Anticipated Discharge Needs: Unable to determine at this time Follow-Up By: 01/25/19 Additional Comments Follow for diet advancement, PO intakes
[2019-01-24] MEDS: PROTONIX PO SCH (22:58)
[2019-01-25] MEDS: IMDUR PO SCH (09:26)
[2019-01-25] MEDS: HALFPRIN EC PO SCH (09:26)
[2019-01-25] MEDS: PROTONIX PO SCH (09:28)
[2019-01-25] MEDS: LASIX PO SCH (09:28)
[2019-01-25] MEDS: SODIUM CHLORIDE FLUSH SYRINGE 10 ML IV SCH (09:29)
[2019-01-25] MEDS: ZESTRIL PO SCH (09:30)
[2019-01-25] MEDS ORDERED: TOPROL XL PO SCH (10:00)
[2019-01-25 11:15] LABS: BUN/Creatinine Ratio 12; Blood Urea Nitrogen 12 mg/dL (9-20); Calcium 9.1 mg/dL (8.4-10.2); Hemolysis Index 2
--- NOTE | 2019-01-25 13:15 | Progress Note ---
Assessment and Plan The patient is stable from a cardiac standpoint. Recommend a dose of potassium prior to discharge given high risk for arrhythmias. Otherwise, he may be discharged home from our perspective. Follow up appointment scheduled with Dr. Patino on 01/31/19 at 1:00 pm in [place] - patient and sister aware. The patient has been seen in conjunction with Dr. Patino, who agrees with assessment and plan. - Patient Problems (1) UGIB (upper gastrointestinal bleed) Current Visit: Yes Status: Acute (2) Anemia Current Visit: Yes Status: Acute (3) HTN (hypertension) Current Visit: Yes Status: Chronic Qualifiers: Hypertension type: essential hypertension Qualified Code(s): I10 - Essential (primary) hypertension (4) PUD (peptic ulcer disease) Current Visit: Yes Status: Chronic (5) Chronic HFrEF (heart failure with reduced ejection fraction) Current Visit: Yes Status: Chronic Subjective Principal diagnosis: GIB Interval history: Patient is resting comfortably in bed with LifeVest. No complaints. Echo on 01/24 found EF of 10-15% and a severely dilated right atrium. Objective Last Vital Signs Temp 98.0 F 01/25/19 07:20 Pulse 69 01/25/19 09:26 Resp 18 01/25/19 07:20 BP 118/63 01/25/19 09:26 Pulse Ox 100 01/25/19 10:00 - Physical Examination General: No Apparent Distress HEENT: Positive: PERRL Neck: Positive: neck supple Cardiac: Positive: Reg Rate and Rhythm Lungs: Positive: Normal Exam Neuro: Positive: Grossly Intact Abdomen: Positive: Unremarkable /Rectal: Other (deferred) Skin: Positive: Clear Musculoskeletal: Normal Range of Motion Extremities: Present: normal - Labs and Meds Comprehensive Metabolic Panel 01/25/19 Range/Units 10:44 Sodium 138 (137-145) mmol/L Potassium 3.7 D (3.6-5.0) mmol/L Chloride 102.3 (98-107) mmol/L Carbon Dioxide 26 (22-30) mmol/L BUN 12 (9-20) mg/dL Creatinine 1.0 (0.8-1.5) mg/dL Glucose 132 H (75-100) mg/dL Calcium 9.1 (8.4-10.2) mg/dL - Imaging and Cardiology EKG: report reviewed (SR with LBBB) Echo: report reviewed (01/24/2019: EF 10-15%, severely dilated RA ) AV and intraventricular conduction: left bundle branch block
[2019-01-25 15:38] VITALS: BP 128/70
== END 2019-01-25 18:00 | disposition home or self-care (01) | DRG 378 ==
LOC: ED 12:42 → 2B-ACE 15:50
PROVIDERS: ADMIT Internal Medicine; ATTEND Internal Medicine
PROC: 0DB68ZX Excision of Stomach, Via Natural or Artificial Opening Endoscopic, Diagnostic (ICD-10-PCS; principal; 2019-01-23)
PROC: 0DB78ZX Excision of Stomach, Pylorus, Via Natural or Artificial Opening Endoscopic, Diagnostic (ICD-10-PCS; 2019-01-23)
PROC: 30233N1 Transfusion of Nonautologous Red Blood Cells into Peripheral Vein, Percutaneous Approach (ICD-10-PCS; 2019-01-23)
DX: K25.4 Chronic or unspecified gastric ulcer with hemorrhage (principal); I50.22 Chronic systolic (congestive) heart failure; E11.9 Type 2 diabetes mellitus without complications; E78.2 Mixed hyperlipidemia; E78.00 Pure hypercholesterolemia, unspecified; I11.0 Hypertensive heart disease with heart failure; Z87.11 Personal history of peptic ulcer disease; Z86.73 Personal history of transient ischemic attack (TIA), and cerebral infarction without residual deficits; Z82.49 Family history of ischemic heart disease and other diseases of the circulatory system; Z79.82 Long term (current) use of aspirin; Z79.84 Long term (current) use of oral hypoglycemic drugs; Z79.899 Other long term (current) drug therapy; Z87.891 Personal history of nicotine dependence; I25.2 Old myocardial infarction
CPT/HCPCS: 36415; 36430; 71045; 74176; 80048; 80053; 82271; 82962; 83690; 84295; 85014; 85018; 85025; 85610; 85730; 86850; 86900; 86901; 86920; 88305; 88342; 93005; 93010; 93306; 96374; 96375; 99406; G0378; C9113; J2250; J2405; J2704; J7040; P9016

== ENCOUNTER 2019-03-15 06:57 | Emergency (ER) | payer MEDICAID, OTHER ==
[2019-03-15 08:03] LABS: Basophils # (Auto) 0.1 K/mm3 (0.0-0.1); Basophils % (Auto) 1.2 % (0.0-1.8); Eosinophils # (Auto) 0.2 K/mm3 (0.0-0.4); Eosinophils % (Auto) 2.5 % (0.0-4.3); Hematocrit 33.9 % (35.5-45.6); Hemoglobin 11.3 gm/dl (11.8-15.2); Lymphocytes # (Auto) 2.2 K/mm3 (1.2-5.4); Lymphocytes % (Auto) 28.8 % (13.4-35.0); Mean Corpuscular HGB Conc 33 % (32-34); Mean Corpuscular Volume 81 fl (84-94); Monocytes # (Auto) 0.7 K/mm3 (0.0-0.8); Monocytes % (Auto) 8.9 % (0.0-7.3); Platelet Count 376 K/mm3 (140-440); Red Cell Distribution Width 16.2 % (13.2-15.2)
--- NOTE | 2019-03-15 08:22 | Emergency Department Report ---
HPI - General Chief Complaint: Medical Clearance Time Seen by Provider: 03/15/19 07:36 - HPI HPI: Room 3 The pt is a 69 y/o M sent from admissions for eval. The pt was reportedly in admissions to set up a cardiac cath. when there was a problem processing his paperwork the pt was sent to the ED. The pt denies any complaints currently. The pt states he had CP and OBRIEN approx 1 month ago. 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) Additional medical history: high cholesterol - Family History Family history: no significant - Social History Smoking Status: Never Smoker Substance Use Type: None - Medications Home Medications: Home Medications Medication Instructions Recorded Confirmed Last Taken Type HYDROcodone/APAP 5-325 [Ebro 1 each PO Q6HR PRN #12 tablet 06/21/18 01/22/19 Unknown Rx 5-325 mg TAB] Aspirin [Aspir-Low] 81 mg PO QAM 09/01/18 01/22/19 Unknown History ISOSORBIDE MONOnitrate [Imdur ER] 30 mg PO DAILY 09/01/18 01/22/19 Unknown History Lisinopril [Zestril TAB] 10 mg PO QDAY 09/01/18 01/22/19 Unknown History Metoprolol [Lopressor TAB] 25 mg PO BID 09/01/18 01/22/19 Unknown History metFORMIN [Glucophage] 500 mg PO BID 09/01/18 01/22/19 Unknown History Furosemide [Lasix TAB] 40 mg PO BID #60 tablet 09/02/18 01/22/19 Unknown Rx Cholecalciferol Vit D3 [Vitamin D3 2,000 unit PO BID 01/22/19 01/22/19 Unknown History 1,000 UNIT TAB] Pantoprazole [Protonix TAB] 40 mg PO BID #60 tablet 01/24/19 Unknown Rx ED Review of Systems ROS: Stated complaint: Other details as noted in HPI Constitutional: no symptoms reported Eyes: denies: eye pain ENT: denies: throat pain Respiratory: no symptoms reported Cardiovascular: denies: chest pain Endocrine: no symptoms reported Gastrointestinal: denies: abdominal pain Genitourinary: denies: dysuria Musculoskeletal: denies: back pain Neurological: denies: headache Physical Exam - Physical Exam Vital Signs: Vital Signs 03/15/19 07:13 Temperature 97.8 F Pulse Rate 71 Respiratory 18 Rate Blood Pressure 109/51 O2 Sat by Pulse 100 Oximetry Physical Exam: GEN: WD WN M sitting on stretcher in NAD HEENT: NCAT NECK: no stridor CV: rrr no mrg PULM: CTA B ABD: s/ND SKIN: No diaphoresis NEURO: GCS 15 ED Course Vital Signs 03/15/19 07:13 Temperature 97.8 F Pulse Rate 71 Respiratory 18 Rate Blood Pressure 109/51 O2 Sat by Pulse 100 Oximetry - Consultations Consultation #1: 03/15/19 08:01 Case d/w Dr Damon ED Medical Decision Making - Lab Data Result diagrams: 03/15/19 07:48 03/15/19 07:48 - EKG Data -: EKG Interpreted by Me EKG shows normal: sinus rhythm Rate: normal - EKG Data Interpretation: unchanged when compared t (01/22/19) - Differential Diagnosis CAD Critical care attestation.: If time is entered above; I have spent that time in minutes in the direct care of this critically ill patient, excluding procedure time. ED Disposition Clinical Impression: History of chest pain Disposition: DC-01 TO HOME OR SELFCARE Is pt being admited?: No Does the pt Need Aspirin: No Condition: Stable Referrals: KAVITA WILLIAMSON MD [Staff Physician] - 3-5 Days Time of Disposition: 08:45
[2019-03-15 08:30] LABS: Creatine Kinase MB 2.7 ng/mL (0.0-4.0)
[2019-03-15 08:31] LABS: BUN/Creatinine Ratio 25; Blood Urea Nitrogen 25 mg/dL (9-20); Calcium 9.2 mg/dL (8.4-10.2); Hemolysis Index 0
[2019-03-15 09:26] VITALS: BP 110/68
== END 2019-03-15 09:25 | disposition home or self-care (01) ==
LOC: ED 06:57 → EDSTATUS 08:30 → ED 09:25
DX: R07.89 Other chest pain (principal); I11.0 Hypertensive heart disease with heart failure; I50.9 Heart failure, unspecified; E11.9 Type 2 diabetes mellitus without complications; Z98.890 Other specified postprocedural states; Z79.84 Long term (current) use of oral hypoglycemic drugs
CPT/HCPCS: 36415; 80048; 82550; 82553; 84484; 85025; 93005; 93010